=== PATIENT | female | born 1990 | race Caucasian/White ===

== ENCOUNTER 2018-03-12 00:26 | Inpatient (IN) | payer OTHER ==
[2018-03-12] MEDS ORDERED: ePHEDrine 50 MG/ML SDV IVPUSH PRN (19:38)
[2018-03-12] MEDS ORDERED: Ondansetron 4 MG/2 ML SDV IVPUSH PRN ×2 (19:38→20:31)
[2018-03-12] MEDS ORDERED: fentaNYL 100 MCG/2 ML SDV EPIDUR PRN (19:38)
[2018-03-12] MEDS ORDERED: fentaNYL/Bupivacaine-NS 2 MCG/ML-0.125%/PF 100 ML Bag EP SCH (19:45)
[2018-03-12] MEDS ORDERED: Phenylephrine 1 MG in Sodium Chloride 0.9% 10 ML IV SCH (19:45)
[2018-03-12] MEDS ORDERED: Misoprostol 25 MCG (1/4 of 100 MCG) Tab ONE (19:57)
[2018-03-12] MEDS: Misoprostol 25 MCG (1/4 of 100 MCG) Tab VAG PRN (20:11)
[2018-03-12] MEDS ORDERED: Nalbuphine 20 MG/1 ML Amp IVPUSH PRN (20:31)
[2018-03-12] MEDS ORDERED: Misoprostol 100 MCG Tab VAG PRN (20:31)
[2018-03-12] MEDS ORDERED: Sodium Chloride 0.9% 10 ML Syringe FLUSH PRN (20:31)
[2018-03-12] MEDS ORDERED: hydrOXYzine HCl 25 MG Tab PO PRN (20:36)
[2018-03-12] MEDS ORDERED: Oxytocin/Lactated Ringers 10 UNIT/1,000 ML BAG IV SCH (20:45)
--- NOTE | 2018-03-12 20:53 | PCM.LDHP ---
L&D History of Present Illness - General Date of Service: 03/12/18 Admit Problem/Dx: Patient Status Order with Admit Dx/Problem 03/12/18 20:31 Patient Status [ADT] Routine Admission Diagnosis/Problem Admission Diagnosis/Problem 39 weeks gestation of Source of Information: Patient History Limitations: Reports: No Limitations - History of Present Illness Introduction:: Evette Lu is a 27 year old at 39 weeks 5 days (PASCALE 03/14/2018) by LMP consistent with 6 week ultrasound who presents for elective induction of labor. Patient reports that she started to have some more unusual feelings and pressure in her abdomen and pelvis this afternoon. She didn't time when she was having some of these unusual feelings but states that they did get worse when she was standing. She reports a last night she started to have more mucous vaginal discharge but denies any vaginal bleeding. She reports good movement. She reports that she has been using the hydroxyzine at night to help with the itching that she had talked about at her last appointment. She reports that she developed a rash on her arms and abdomen and then now she is seeing a more on her arms behind her knees and on her legs and on buttocks. The hydroxyzine was helping with her itching and would like to continue during labor. Timing/Duration: Reports: gradual onset Location, : Reports: Pelvic Quality: Reports: Pressure Severity: Mild Improves with: Reports: None Worsens with: Reports: None Associated Symptoms: Denies: vaginal bleeding, vaginal discharge, vaginal fluid Present Illness Comments:: Evelia Lu is a 27-year-old at 39 weeks 5 days (PASCALE 03/14/2018) by LMP consistent with 6 week ultrasound who presents for elective induction of labor. She has had routine care with myself, Dr. Cosby, since 6 weeks' gestational age. Review of her labs shows A- blood type with negative antibody screen. Her hematocrit was 41.3 with hemoglobin of 13.8 and platelets of 283. She was rubella immune. Her RPR, hepatitis B surface antigen and HIV were negative. Her urine culture showed mixed daisy and was suggestive of contamination. Her gonorrhea and Chlamydia test were both negative. Her anatomy ultrasound was overall normal without any abnormalities. She had a posterior placenta on the ultrasound. Her 1 hour glucose tolerance test was elevated at 135. Her 3 hour glucose tolerance test had values of fasting of 78 , 1 hour value of 155, 2 hour value of 115 and 3 hour value of 99. Her repeat hematocrit was 35.2 with hemoglobin of 11.7 and platelets of 253 on 11/30/2017. She was given a dose of RhoGAM at 20 weeks gestational age on 12/21/2017. Her GBS test was positive on 02/19/2018. Her has been complicated by: * Rh- status requiring RhoGAM during , given first dose at 28 weeks gestational age. * GBS positive and will be treated in * Excessive weight gain of more than 100 pounds during * PUPPS at the end of treated with hydroxyzine * Personal history of spondylolisthesis - Related Data Allergies/Adverse Reactions: Allergies Allergy/AdvReac Type Severity Reaction Status Date / Time No Known Allergies Allergy Verified 02/16/14 15:22 Past Medical History [employer] History: Reports: : 1 Para: 0 Musculoskeletal History: Reports: Other (See Below) Other Musculoskeletal History: Spondylolisthesis Psychiatric History: Reports: Anxiety (Not requiring medications) - Past Surgical History HEENT Surgical History: Reports: Other (See Below) (Castaner tooth extraction) Social & Family History - Tobacco Use Smoking Status *Q: Never Smoker Tobacco Use Within Last Twelve Months: No - Tobacco Core Measures Tobacco Use/Smoking Within Last 30 Days: No Smokeless Tobacco Use in Last 30 Days: No - Alcohol Use Alcohol Use History: No - Recreational Drug Use Recreational Drug Use: No Drug Use in Last 12 Months: No - Living Situation & Occupation Living situation: Reports: with Significant Other Occupation: Employed H&P Review of Systems - Review of Systems: Review Of Systems: See Below General: Denies: Fever, Chills, Malaise, Weakness HEENT: Reports: Sinus Congestion. Denies: Rhinitis, Post Nasal Drip, Sore Throat, Visual Changes Pulmonary: Denies: Shortness of Breath, Wheezing, Cough Cardiovascular: Denies: Chest Pain, Palpitations, Dyspnea on Exertion Gastrointestinal: Reports: Diarrhea. Denies: Abdominal Pain, Constipation, Nausea, Vomiting Genitourinary: Denies: Dysuria, Frequency, Burning, Pain, Urgency Musculoskeletal: Reports: Back Pain (and hip pain) Skin: Reports: Rash (arms, abdomen and legs for last week or 2 of ). Denies: Lesions Psychiatric: Reports: Anxiety. Denies: Depression L&D Exam - Exam Exam: See Below - OB Specific Contraction Duration (sec): 30-75 Contraction Frequency (min): 2-6 Contraction Intensity: Mild Movement: Active Heart Tones: Present Heart Tones per Min: 145 (+15 x 15 accelerations, no decelerations) Heart Rate (FHR) Variability: Moderate (6-25 bmp) Presentation: Vertex Estimated Weight: 8-8.5 pounds by Michele's - Barr Score Barr Score Cervix Position: Posterior Barr Score Consistency: Medium Barr Score Effacement: 51-70% (70%) Barr Score Dilation: 1-2 cm (1.5 cm) Barr Score 's Station: -3 (-4) Barr Score Total: 4 - Exam General: Alert, Oriented HEENT: Conjunctiva Clear, EOMI Neck: Supple, Trachea Midline Lungs: Clear to Auscultation, Normal Respiratory Effort Cardiovascular: Regular Rate, Regular Rhythm GI/Abdominal Exam: Soft, Non-Tender, No Distention, Other (Gravid). No: Guarding, Rigid, Rebound Genitourinary: Normal external exam Back Exam: Normal Inspection, Full Range of Motion Skin: Warm, Dry, Intact, Rash (Over portions of the abdomen, bilateral arms and wrists, and bilateral lower legs) Psychiatric: Alert, Normal Affect, Normal Mood - Problem List (1) 39 weeks gestation of SNOMED Code(s): 75942376 ICD Code: Z3A.39 - 39 WEEKS GESTATION OF Status: Acute Current Visit: Yes (2) GBS (group B Streptococcus carrier), +RV culture, currently SNOMED Code(s): 0325828754798, [id number], 2107716302880 ICD Code: O99.820 - STREPTOCOCCUS B CARRIER STATE COMPLICATING Status: Acute Current Visit: Yes (3) Rh negative status during SNOMED Code(s): 178118591 ICD Code: O26.899 - OTH RELATED CONDITIONS, UNSPECIFIED TRIMESTER; Z67.91 - UNSPECIFIED BLOOD TYPE, RH NEGATIVE Status: Acute Current Visit: Yes (4) Anxiety SNOMED Code(s): 36831625 ICD Code: F41.9 - ANXIETY DISORDER, UNSPECIFIED Status: Acute Current Visit: Yes (5) Spondylolisthesis SNOMED Code(s): 472208573 ICD Code: M43.10 - SPONDYLOLISTHESIS, SITE UNSPECIFIED Status: Acute Current Visit: Yes Problem List Initiated/Reviewed/Updated: Yes Orders Last 24hrs: Active Orders 24 hr Category Date Time Status Patient Status [ADT] Routine ADT 03/12/18 20:31 Ordered Activity as Tolerated [RC] PFP Care 03/12/18 20:31 Ordered Communication Order [RC] ASDIRECTED Care 03/12/18 20:31 Ordered Communication Order [RC] ASDIRECTED Care 03/12/18 20:31 Ordered Communication Order [RC] ASDIRECTED Care 03/12/18 20:31 Ordered Communication Order [RC] ASDIRECTED Care 03/12/18 20:31 Ordered Heart Tones [RC] ASDIRECTED Care 03/12/18 20:31 Ordered Monitoring [RC] INTERMITTENT Care 03/12/18 20:31 Ordered Non Stress Test [RC] PER UNIT ROUTINE Care 03/12/18 20:31 Ordered Notify Provider Vital Signs [RC] PRN Care 03/12/18 20:32 Ordered Notify Provider [RC] ASDIRECTED Care 03/12/18 19:38 Active Notify Provider [RC] ASDIRECTED Care 03/12/18 20:31 Ordered Notify Provider [RC] ASDIRECTED Care 03/12/18 20:34 Ordered Notify Provider [RC] PFP Care 03/12/18 20:31 Ordered Notify Provider [RC] PRN Care 03/12/18 20:31 Ordered Oxygen Therapy [RC] ASDIRECTED Care 03/12/18 19:37 Active Peripheral IV Care [RC] . DIRECTED Care 03/12/18 20:31 Ordered Pulse Oximetry [RC] ASDIRECTED Care 03/12/18 19:37 Active Pump Management, Intrathecal [RC] ASDIRECTED Care 03/12/18 20:32 Ordered Up ad April [RC] ASDIRECTED Care 03/12/18 20:34 Ordered Urinary Catheter Assessment [RC] ASDIRECTED Care 03/12/18 20:31 Ordered Vaginal Exam [RC] ASDIRECTED Care 03/12/18 20:31 Ordered Vital Signs [RC] PER UNIT ROUTINE Care 03/12/18 20:31 Ordered Regular Diet [DIET] Diet 03/12/18 Dinner Ordered CBC W/O DIFF,HEMOGRAM [HEME] Routine Lab 03/12/18 20:31 Ordered RAPID PLASMA REAGIN,RPR [CHEM] Routine Lab 03/12/18 20:36 Ordered Ampicillin 1 gm Med 03/13/18 08:00 Ordered Sodium Chloride 0.9% [Normal Saline] 100 ml IV Q4H Ampicillin 2 gm Med 03/13/18 04:00 Ordered Sodium Chloride 0.9% [Normal Saline] 100 ml IV ONETIME Lactated Ringers [Ringers, Lactated] 1,000 ml Med 03/12/18 20:45 Ordered IV ASDIRECTED Lactated Ringers [Ringers, Lactated] 1,000 ml Med 03/12/18 20:45 Ordered IV ASDIRECTED Nalbuphine [Nubain] Med 03/12/18 20:31 Ordered 10 mg IVPUSH Q2H PRN Ondansetron [Zofran] Med 03/12/18 19:38 Active 4 mg IVPUSH ONETIME PRN Ondansetron [Zofran] Med 03/12/18 20:31 Ordered 4 mg IVPUSH Q4H PRN Oxytocin/Lactated Ringers [Pitocin in LR 10 Units/1,000 Med 03/12/18 20:45 Ordered ML] 10 unit in 1,000 ml IV .CONTINUOUS Phenylephrine [Ivan-Synephrine] 1 mg Med 03/12/18 19:45 Active Sodium Chloride 0.9% [Normal Saline] 10 ml IV TITRATE Sodium Chloride 0.9% [Saline Flush] Med 03/12/18 20:31 Ordered 10 ml FLUSH ASDIRECTED PRN ePHEDrine [ePHEDrine sulfate] Med 03/12/18 19:38 Active 5 mg IVPUSH ASDIRECTED PRN fentaNYL [Sublimaze] Med 03/12/18 19:38 Active 100 mcg EPIDUR Q3H PRN fentaNYL/Bupivacaine/NS/PF [rqkazROW-Cczbt-NL 2 MCG/ML- Med 03/12/18 19:45 Active 0.125%] 100 ml EP ASDIRECTED hydrOXYzine HCl [Atarax] Med 03/12/18 20:36 Ordered 25 mg PO Q6H PRN miSOPROStol [Cytotec] Med 03/12/18 20:31 Ordered 25 mcg VAG Q4H PRN Electronic Heart Tones Ext w TOCO [WOMSER] Oth 03/12/18 20:31 Ordered Routine Electronic Heart Tones Internal [WOMSER] Per Unit Oth 03/12/18 20:31 Ordered Routine Peripheral IV Insertion Adult [OM.PC] Routine Oth 03/12/18 20:31 Ordered Peripheral IV Insertion Adult [OM.PC] Routine Ot 03/12/18 20:31 Ordered Resuscitation Status Routine Resus Stat 03/12/18 20:31 Ordered Medication Orders Ephedrine Sulfate (Ephedrine Sulfate) 5 mg IVPUSH ASDIRECTED PRN PRN Reason: Hypotension Fentanyl (Sublimaze) 100 mcg EPIDUR Q3H PRN PRN Reason: Pain Fentanyl/Bupivacaine HCl (Gpxjpgjo-Rfkmo-Ne 2 Mcg/Ml-0.125%) 100 ml EP ASDIRECTED JEAN Hydroxyzine HCl (Atarax) 25 mg PO Q6H PRN PRN Reason: Itching Phenylephrine HCl 1 mg/ Sodium (Chloride) 10.1 mls @ 1 mls/sec IV TITRATE JEAN; Protocol Ampicillin Sodium 2 gm/ Sodium (Chloride) 100 mls @ 200 mls/hr IV ONETIME ONE Stop: 03/13/18 04:29 Ampicillin Sodium 1 gm/ Sodium (Chloride) 100 mls @ 200 mls/hr IV Q4H JEAN Lactated Ringer's (Ringers, Lactated) 1,000 mls @ 100 mls/hr IV ASDIRECTED JEAN Lactated Ringer's (Ringers, Lactated) 1,000 mls @ 40 mls/hr IV ASDIRECTED JEAN Oxytocin/Lactated Ringer's (Pitocin In Lr 10 Units/1,000 Ml) 10 unit in 1,000 mls @ 100 mls/hr IV .CONTINUOUS [facility] Misoprostol (Cytotec) 25 mcg VAG Q4H PRN PRN Reason: cervical ripening Nalbuphine HCl (Nubain) 10 mg IVPUSH Q2H PRN PRN Reason: Pain (moderate 4-6) Ondansetron HCl (Zofran) 4 mg IVPUSH ONETIME PRN PRN Reason: Nausea/Vomiting Ondansetron HCl (Zofran) 4 mg IVPUSH Q4H PRN PRN Reason: Nausea/Vomiting Sodium Chloride (Saline Flush) 10 ml FLUSH ASDIRECTED PRN PRN Reason: Keep Vein Open Assessment/Plan Comment:: Refer to observation for elective induction of labor Start induction of labor with Cytotec 25 mcg vaginally now and every 4 hours Intermittent monitoring while on Cytotec with monitoring for 30 minutes after placement of Cytotec and may ambulate as tolerated with category [address] IV and have Lactated Ringer's at 125 ml/hr if not tolerating regular diet May have regular diet while on Cytotec induction Activity as tolerated May have epidural as desired Plans to breast-feed after delivery Start on ampicillin 2 g at 0400 on 03/13/2018 and have 1 g every 4 hours after for GBS prophylaxis Patient may use hydroxyzine 25 mg every 6 hours as needed for itching Anticipate vaginal delivery unless otherwise indicated Ender Cosby M.D. Now 3 PM 03/12/2018
[2018-03-13] MEDS ORDERED: Misoprostol 25 MCG (1/4 of 100 MCG) Tab ONE (00:17)
[2018-03-13] MEDS: Misoprostol 25 MCG (1/4 of 100 MCG) Tab VAG PRN ×2 (00:28→08:32)
[2018-03-13] MEDS ORDERED: Hydrocortisone 1% Crm 30 GM Tube TOP PRN (00:52)
[2018-03-13] MEDS ORDERED: Hydrocortisone 1% Crm 30 GM Tube TOP ONE (01:26)
[2018-03-13] MEDS: Lactated Ringers 1,000 ML IV SCH ×4 (01:55→19:12)
[2018-03-13] MEDS ORDERED: Ampicillin 2 GM in Sodium Chloride 0.9% 100 ML IV ONE ×2 (04:00→11:30)
[2018-03-13] MEDS ORDERED: Nalbuphine 20 MG/ML 1 ML Syringe IVPUSH PRN (07:15)
[2018-03-13] MEDS ORDERED: Ampicillin 1 GM in Sodium Chloride 0.9% 100 ML IV SCH (08:00)
--- NOTE | 2018-03-13 08:43 | PCM.PNLD ---
Labor Progress Note - VS & Meds Vital Signs: Last Vital Signs Temp 37.3 C 03/12/18 20:31 Pulse 78 03/12/18 20:31 Resp 15 03/12/18 20:31 BP 138/77 03/12/18 20:31 Pulse Ox 99 03/12/18 20:31 Active Medications: Current Medications Ephedrine Sulfate (Ephedrine Sulfate) 5 mg IVPUSH ASDIRECTED PRN PRN Reason: Hypotension Fentanyl (Sublimaze) 100 mcg EPIDUR Q3H PRN PRN Reason: Pain Fentanyl/Bupivacaine HCl (Tgwluejb-Kggsv-Sz 2 Mcg/Ml-0.125%) 100 ml EP ASDIRECTED JEAN Hydroxyzine HCl (Atarax) 25 mg PO Q6H PRN PRN Reason: Itching Last Admin: 03/12/18 23:00 Dose: 25 mg Phenylephrine HCl 1 mg/ Sodium (Chloride) 10.1 mls @ 1 mls/sec IV TITRATE JEAN; Protocol Ampicillin Sodium 1 gm/ Sodium (Chloride) 100 mls @ 200 mls/hr IV Q4H JEAN Lactated Ringer's (Ringers, Lactated) 1,000 mls @ 100 mls/hr IV ASDIRECTED JEAN Last Admin: 03/13/18 01:55 Dose: 999 mls/hr Lactated Ringer's (Ringers, Lactated) 1,000 mls @ 40 mls/hr IV ASDIRECTED JEAN Oxytocin/Lactated Ringer's (Pitocin In Lr 10 Units/1,000 Ml) 10 unit in 1,000 mls @ 100 mls/hr IV .CONTINUOUS JEAN Nalbuphine HCl (Nubain) 10 mg IVPUSH Q2H PRN PRN Reason: Pain (moderate 4-6) Ondansetron HCl (Zofran) 4 mg IVPUSH ONETIME PRN PRN Reason: Nausea/Vomiting Ondansetron HCl (Zofran) 4 mg IVPUSH Q4H PRN PRN Reason: Nausea/Vomiting Sodium Chloride (Saline Flush) 10 ml FLUSH ASDIRECTED PRN PRN Reason: Keep Vein Open Discontinued Medications Hydrocortisone (Hydrocortisone 1% Crm) 30 gm TOP ASDIRECTED PRN PRN Reason: Itching Hydrocortisone (Hydrocortisone 1% Crm) 0 gm TOP ONETIME ONE Stop: 03/13/18 01:27 Last Admin: 03/13/18 01:51 Dose: 1 applic Ampicillin Sodium 2 gm/ Sodium (Chloride) 100 mls @ 200 mls/hr IV ONETIME ONE Stop: 03/13/18 04:29 Misoprostol (Cytotec) Confirm Administered Dose 25 mcg .ROUTE .STK-MED ONE Stop: 03/12/18 19:58 Last Admin: 03/13/18 01:15 Dose: Not Given Misoprostol (Cytotec) 25 mcg VAG Q4H PRN PRN Reason: cervical ripening Misoprostol (Cytotec) 25 mcg VAG Q4H PRN PRN Reason: cervical ripening Last Admin: 03/13/18 08:32 Dose: 25 mcg Misoprostol (Cytotec) Confirm Administered Dose 25 mcg .ROUTE .STK-MED ONE Stop: 03/13/18 00:18 Last Admin: 03/13/18 01:15 Dose: Not Given Nalbuphine HCl (Nubain) 10 mg IVPUSH Q2H PRN PRN Reason: Pain (moderate 4-6) - Uterine Contractions Contraction Frequency (min): 1-6 with couplets and triplets Contraction Duration (sec): 30-75 Contraction Intensity: Moderate Uterine Resting Tone: Soft - Monitoring Monitor Mode: Doppler/Auscultation Heart Rate (FHR) Baseline: 130 Heart Rate (FHR) Per Doppler: 130 Heart Rate (FHR) Variability: Moderate (6-25 bmp) Accelerations: Present, 15x15 Decelerations: None - Vaginal Exam Dilation (cm): 1.5 Effacement (Percent): 80 Station: -3 Cervical Position: Anterior Sterile Vaginal Exam Performed By: Ender Cosby Vaginal Exam Comment: Cervical exam was 1.5/80/-3/soft/anterior. Received verbal consent for placement of placement of Stone bulb for cervical dilation. 24 [place] Stnoe bulb was placed through the cervix and 50 mL of sterile water was instilled into the foldable balloon. The mother and baby tolerated procedure without difficulties. - Labor Progress (Free Text) Labor Progress: * Patient making good progress at this time. Cervix is softening up with use of Cytotec. * Additional dose of Cytotec 25 mcg placed at time of Stone bulb placement. * Patient diagnosed with preeclampsia overnight based on continued elevation of her blood pressures into the 140s/80s and urine protein to creatinine ratio of 0.534. We will continue to monitor her blood pressures closely to ensure that she does not develop severe features. * Plan to start ampicillin 2 g at 11 AM for GBS prophylaxis or if her water breaks spontaneously. * Anticipate vaginal delivery unless otherwise indicated Ender Cosby M.D. 8:51 AM 03/13/2018
[2018-03-13] MEDS ORDERED: hydrALAZINE 20 MG/ML SDV IVPUSH ONE (09:21)
[2018-03-13] MEDS ORDERED: hydrALAZINE 20 MG/ML SDV ONE (09:22)
--- NOTE | 2018-03-13 12:55 | PCM.PNLD ---
Labor Progress Note - VS & Meds Vital Signs: Last Vital Signs Temp 37.3 C 03/12/18 20:31 Pulse 78 03/12/18 20:31 Resp 15 03/12/18 20:31 BP 138/77 03/12/18 20:31 Pulse Ox 99 03/12/18 20:31 Active Medications: Current Medications Ephedrine Sulfate (Ephedrine Sulfate) 5 mg IVPUSH ASDIRECTED PRN PRN Reason: Hypotension Fentanyl (Sublimaze) 100 mcg EPIDUR Q3H PRN PRN Reason: Pain Fentanyl/Bupivacaine HCl (Daduptjz-Rmwtz-Bd 2 Mcg/Ml-0.125%) 100 ml EP ASDIRECTED JEAN Hydroxyzine HCl (Atarax) 25 mg PO Q6H PRN PRN Reason: Itching Last Admin: 03/12/18 23:00 Dose: 25 mg Phenylephrine HCl 1 mg/ Sodium (Chloride) 10.1 mls @ 1 mls/sec IV TITRATE JEAN; Protocol Lactated Ringer's (Ringers, Lactated) 1,000 mls @ 100 mls/hr IV ASDIRECTED JEAN Last Admin: 03/13/18 01:55 Dose: 999 mls/hr Lactated Ringer's (Ringers, Lactated) 1,000 mls @ 40 mls/hr IV ASDIRECTED JEAN Oxytocin/Lactated Ringer's (Pitocin In Lr 10 Units/1,000 Ml) 10 unit in 1,000 mls @ 100 mls/hr IV .CONTINUOUS JEAN Ampicillin Sodium 1 gm/ Sodium (Chloride) 100 mls @ 200 mls/hr IV Q4H JEAN Oxytocin 10 unit/ Lactated (Ringer's) 1,001 mls @ 12.01 mls/hr IV TITRATE JEAN; Protocol Nalbuphine HCl (Nubain) 10 mg IVPUSH Q2H PRN PRN Reason: Pain (moderate 4-6) Ondansetron HCl (Zofran) 4 mg IVPUSH ONETIME PRN PRN Reason: Nausea/Vomiting Ondansetron HCl (Zofran) 4 mg IVPUSH Q4H PRN PRN Reason: Nausea/Vomiting Sodium Chloride (Saline Flush) 10 ml FLUSH ASDIRECTED PRN PRN Reason: Keep Vein Open Discontinued Medications Hydralazine HCl (Apresoline) 10 mg IVPUSH ONETIME ONE Stop: 03/13/18 09:22 Last Admin: 03/13/18 09:26 Dose: 10 mg Hydralazine HCl (Apresoline) Confirm Administered Dose 20 mg .ROUTE .STK-MED ONE Stop: 03/13/18 09:23 Last Admin: 03/13/18 10:49 Dose: Not Given Hydrocortisone (Hydrocortisone 1% Crm) 30 gm TOP ASDIRECTED PRN PRN Reason: Itching Hydrocortisone (Hydrocortisone 1% Crm) 0 gm TOP ONETIME ONE Stop: 03/13/18 01:27 Last Admin: 03/13/18 01:51 Dose: 1 applic Ampicillin Sodium 2 gm/ Sodium (Chloride) 100 mls @ 200 mls/hr IV ONETIME ONE Stop: 03/13/18 04:29 Ampicillin Sodium 1 gm/ Sodium (Chloride) 100 mls @ 200 mls/hr IV Q4H JEAN Ampicillin Sodium 2 gm/ Sodium (Chloride) 100 mls @ 200 mls/hr IV ONETIME ONE Stop: 03/13/18 11:59 Last Admin: 03/13/18 11:37 Dose: 200 mls/hr Misoprostol (Cytotec) Confirm Administered Dose 25 mcg .ROUTE .STK-MED ONE Stop: 03/12/18 19:58 Last Admin: 03/13/18 01:15 Dose: Not Given Misoprostol (Cytotec) 25 mcg VAG Q4H PRN PRN Reason: cervical ripening Misoprostol (Cytotec) 25 mcg VAG Q4H PRN PRN Reason: cervical ripening Last Admin: 03/13/18 08:32 Dose: 25 mcg Misoprostol (Cytotec) Confirm Administered Dose 25 mcg .ROUTE .STK-MED ONE Stop: 03/13/18 00:18 Last Admin: 03/13/18 01:15 Dose: Not Given Nalbuphine HCl (Nubain) 10 mg IVPUSH Q2H PRN PRN Reason: Pain (moderate 4-6) - Uterine Contractions Contraction Frequency (min): 1-4 Contraction Duration (sec): 45-75 Contraction Intensity: Moderate to Strong Uterine Resting Tone: Soft - Monitoring Monitor Mode: Doppler/Auscultation Heart Rate (FHR) Baseline: 140 Heart Rate (FHR) Per Doppler: 140 Heart Rate (FHR) Variability: Moderate (6-25 bmp) Accelerations: Present, 15x15 Decelerations: None, Variable, Intermittent (<50% x 20 min) - Vaginal Exam Dilation (cm): 5 Effacement (Percent): 80 Station: -2 Cervical Position: Anterior Sterile Vaginal Exam Performed By: Ender Cosby Vaginal Exam Comment: Stone bulb was removed intact and cervical exam was 5/80/- 2/soft/anterior. - Labor Progress (Free Text) Labor Progress: Good labor progress at this time. Cervical exam was 5/80/-2/anterior/soft but likely due to mechanical dilation by Stone bulb. Will start with pitocin for augmentation of labor at this time. Continue Ampicillin for GBS prophylaxis Will plan for artificial rupture of membranes after patient has made cervical change and is past 4 hours after first dose of Ampicillin Ender Cosby MD 12:5 PM 03/13/2018
[2018-03-13] MEDS ORDERED: Oxytocin/Lactated Ringers 10 UNIT/1,000 ML BAG IV SCH (13:00)
[2018-03-13] MEDS: Ampicillin 1 GM in Sodium Chloride 0.9% 100 ML IV SCH ×3 (15:29→23:17)
--- NOTE | 2018-03-13 17:14 | PCM.PNLD ---
Labor Progress Note - VS & Meds Vital Signs: Last Vital Signs Temp 37.3 C 03/12/18 20:31 Pulse 78 03/12/18 20:31 Resp 15 03/12/18 20:31 BP 138/77 03/12/18 20:31 Pulse Ox 99 03/12/18 20:31 Active Medications: Current Medications Ephedrine Sulfate (Ephedrine Sulfate) 5 mg IVPUSH ASDIRECTED PRN PRN Reason: Hypotension Fentanyl (Sublimaze) 100 mcg EPIDUR Q3H PRN PRN Reason: Pain Fentanyl/Bupivacaine HCl (Qfmvdxrp-Adems-Vz 2 Mcg/Ml-0.125%) 100 ml EP ASDIRECTED JEAN Hydroxyzine HCl (Atarax) 25 mg PO Q6H PRN PRN Reason: Itching Last Admin: 03/12/18 23:00 Dose: 25 mg Phenylephrine HCl 1 mg/ Sodium (Chloride) 10.1 mls @ 1 mls/sec IV TITRATE JEAN; Protocol Lactated Ringer's (Ringers, Lactated) 1,000 mls @ 100 mls/hr IV ASDIRECTED JEAN Last Admin: 03/13/18 01:55 Dose: 999 mls/hr Lactated Ringer's (Ringers, Lactated) 1,000 mls @ 40 mls/hr IV ASDIRECTED JEAN Last Admin: 03/13/18 13:05 Dose: 40 mls/hr Oxytocin/Lactated Ringer's (Pitocin In Lr 10 Units/1,000 Ml) 10 unit in 1,000 mls @ 100 mls/hr IV .CONTINUOUS [facility] Ampicillin Sodium 1 gm/ Sodium (Chloride) 100 mls @ 200 mls/hr IV Q4H JEAN Last Admin: 03/13/18 15:29 Dose: 200 mls/hr Oxytocin/Lactated Ringer's (Pitocin In Lr 10 Units/1,000 Ml) 10 unit in 1,000 mls @ 12 mls/hr IV TITRATE JEAN; Protocol Last Titration: 03/13/18 14:36 Dose: 8 munits/min, 48 mls/hr Nalbuphine HCl (Nubain) 10 mg IVPUSH Q2H PRN PRN Reason: Pain (moderate 4-6) Ondansetron HCl (Zofran) 4 mg IVPUSH ONETIME PRN PRN Reason: Nausea/Vomiting Ondansetron HCl (Zofran) 4 mg IVPUSH Q4H PRN PRN Reason: Nausea/Vomiting Sodium Chloride (Saline Flush) 10 ml FLUSH ASDIRECTED PRN PRN Reason: Keep Vein Open Discontinued Medications Hydralazine HCl (Apresoline) 10 mg IVPUSH ONETIME ONE Stop: 03/13/18 09:22 Last Admin: 03/13/18 09:26 Dose: 10 mg Hydralazine HCl (Apresoline) Confirm Administered Dose 20 mg .ROUTE .STK-MED ONE Stop: 03/13/18 09:23 Last Admin: 03/13/18 10:49 Dose: Not Given Hydrocortisone (Hydrocortisone 1% Crm) 30 gm TOP ASDIRECTED PRN PRN Reason: Itching Hydrocortisone (Hydrocortisone 1% Crm) 0 gm TOP ONETIME ONE Stop: 03/13/18 01:27 Last Admin: 03/13/18 01:51 Dose: 1 applic Ampicillin Sodium 2 gm/ Sodium (Chloride) 100 mls @ 200 mls/hr IV ONETIME ONE Stop: 03/13/18 04:29 Last Admin: 03/13/18 14:10 Dose: Not Given Ampicillin Sodium 1 gm/ Sodium (Chloride) 100 mls @ 200 mls/hr IV Q4H JEAN Last Admin: 03/13/18 14:09 Dose: Not Given Ampicillin Sodium 2 gm/ Sodium (Chloride) 100 mls @ 200 mls/hr IV ONETIME ONE Stop: 03/13/18 11:59 Last Admin: 03/13/18 11:37 Dose: 200 mls/hr Misoprostol (Cytotec) Confirm Administered Dose 25 mcg .ROUTE .STK-MED ONE Stop: 03/12/18 19:58 Last Admin: 03/13/18 01:15 Dose: Not Given Misoprostol (Cytotec) 25 mcg VAG Q4H PRN PRN Reason: cervical ripening Misoprostol (Cytotec) 25 mcg VAG Q4H PRN PRN Reason: cervical ripening Last Admin: 03/13/18 08:32 Dose: 25 mcg Misoprostol (Cytotec) Confirm Administered Dose 25 mcg .ROUTE .STK-MED ONE Stop: 03/13/18 00:18 Last Admin: 03/13/18 01:15 Dose: Not Given Nalbuphine HCl (Nubain) 10 mg IVPUSH Q2H PRN PRN Reason: Pain (moderate 4-6) - Uterine Contractions Contraction Frequency (min): 1-4 Contraction Duration (sec): 60-75 Contraction Intensity: Moderate to Strong Uterine Resting Tone: Soft - Monitoring Monitor Mode: Doppler/Auscultation Heart Rate (FHR) Baseline: 135 Heart Rate (FHR) Per Doppler: 135 Heart Rate (FHR) Variability: Moderate (6-25 bmp) Accelerations: Present, 15x15 Decelerations: None, Variable, Intermittent (<50% x 20 min) Strip Review: Category II - Vaginal Exam Dilation (cm): 7 Effacement (Percent): 90 Station: -2 Cervical Position: Anterior Sterile Vaginal Exam Performed By: Ender Cosby Vaginal Exam Comment: Patient with spontaneous rupture of membranes prior to exam. Meconium fluid noted at the time of rupture. Patient with forebag noted on exam. Artificial rupture of membranes of forebag with [place] performed. Thick meconium fluid noted. - Labor Progress (Free Text) Labor Progress: Patient continuing to progress with slow dilation of cervix. Continue pitocin for augmentation of labor Thick meconium fluid noted with artificial rupture of membranes of fore bag. Ramp Flight Attendant informed. Continue ampicillin for GBS prophylaxis Blood pressures have been normal to mild range. Will continue to monitor Anticipate vaginal delivery unless otherwise indicated. Ender Cosby MD 5:17 PM 03/13/2018
--- NOTE | 2018-03-13 18:02 | PCM.PREANE ---
Preanesthetic Assessment - Anesthesia/Transfusion/Family Hx Anesthesia History: Prior Anesthesia Without Reaction Family History of Anesthesia Reaction: No Transfusion History: No Prior Transfusion(s) - Review of Systems General: Fatigue Pulmonary: No Symptoms Cardiovascular: No Symptoms Gastrointestinal: Abdominal Pain (LABOR CONTRACTIONS) Neurological: No Symptoms Other: Reports: None - Physical Assessment Pulse: 78 O2 Sat by Pulse Oximetry: 99 Respiratory Rate: 15 Blood Pressure: 138/77 Temperature: 37.3 C Vital Signs: Last Vital Signs Temp 37.3 C 03/12/18 20:31 Pulse 78 03/12/18 20:31 Resp 15 03/12/18 20:31 BP 138/77 03/12/18 20:31 Pulse Ox 99 03/12/18 20:31 Height: 1.68 m Weight: 119.295 kg ASA Class: 2 Mental Status: Alert & Oriented x3 Airway Class: Mallampati = 1 Dentition: Reports: Normal Dentition Thyro-Mental Finger Breadths: 3 Mouth Opening Finger Breadths: 3 ROM/Head Extension: Full Lungs: Clear to Auscultation, Normal Respiratory Effort Cardiovascular: Regular Rate, Regular Rhythm - Lab Values: Laboratory Last Values WBC 12.03 K/mm3 (3.98-10.04) H 03/12/18 20:49 RBC 4.08 M/mm3 (3.98-5.22) 03/12/18 20:49 Hgb 12.0 gm/L (11.2-15.7) 03/12/18 20:49 Hct 35.5 % (34.1-44.9) 03/12/18 20:49 MCV 87.0 fl (79.4-94.8) 03/12/18 20:49 MCH 29.4 pg (25.6-32.2) 03/12/18 20:49 MCHC 33.8 g/dl (32.2-35.5) 03/12/18 20:49 RDW Std Deviation 43.3 fL (36.4-46.3) 03/12/18 20:49 Plt Count 223 K/mm3 (182-369) 03/12/18 20:49 MPV 9.8 fl (9.4-12.3) 03/12/18 20:49 Sodium 137 mEq/L (136-145) 03/12/18 20:49 Potassium 3.9 mEq/L (3.5-5.1) 03/12/18 20:49 Chloride 105 mEq/L (98-107) 03/12/18 20:49 Carbon Dioxide 20 mEq/L (21-32) L 03/12/18 20:49 Anion Gap 15.9 (5-15) H 03/12/18 20:49 BUN 11 mg/dL (7-18) 03/12/18 20:49 Creatinine 0.7 mg/dL (0.55-1.02) 03/12/18 20:49 Est Cr Clr Drug Dosing 111.01 mL/min 03/12/18 20:49 Estimated GFR (MDRD) > 60 mL/min (>60) 03/12/18 20:49 BUN/Creatinine Ratio 15.7 (14-18) 03/12/18 20:49 Glucose 109 mg/dL (74-106) H 03/12/18 20:49 Calcium 8.9 mg/dL (8.5-10.1) 03/12/18 20:49 Total Bilirubin 0.1 mg/dL (0.2-1.0) L 03/12/18 20:49 AST 20 U/L (15-37) 03/12/18 20:49 ALT 22 U/L (14-59) 03/12/18 20:49 Alkaline Phosphatase 145 U/L (46-116) H 03/12/18 20:49 Total Protein 6.5 g/dl (6.4-8.2) 03/12/18 20:49 Albumin 2.6 g/dl (3.4-5.0) L 03/12/18 20:49 Globulin 3.9 gm/dL 03/12/18 20:49 Albumin/Globulin Ratio 0.7 (1-2) L 03/12/18 20:49 Ur Random Creatinine 35.2 mg/dL (30.0-125.0) 03/13/18 02:50 U Random Total Protein 18.8 mg/dL (0.0-11.8) H 03/13/18 02:50 Protein/Creatinin Ratio 534.1 mg/g (0-149) H 03/13/18 02:50 RPR Non-reactive (NONREACTIVE) 03/12/18 20:49 - Allergies Allergies/Adverse Reactions: Allergies Allergy/AdvReac Type Severity Reaction Status Date / Time No Known Allergies Allergy Verified 02/16/14 15:22 - Anesthesia Plan Pre-Op Medication Ordered: None - Acknowledgements Anesthesia Type Planned: Epidural Pt an Appropriate Candidate for the Planned Anesthesia: Yes Alternatives and Risks of Anesthesia Discussed w Pt/Guardian: Yes Pt/Guardian Understands and Agrees with Anesthesia Plan: Yes PreAnesthesia Questionnaire HEENT History: Reports: None Gastrointestinal History: Reports: GERD, Other (See Below) Other Gastrointestinal History: Some diarrhea intermittently over past 3 weeks. 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 Dermatologic History: Reports: Other (See Below) Other Dermatologic History: Preganancy rash; tiny, itchy bumps with reddenned skin on all parts of body - Past Surgical History HEENT Surgical History: Reports: Oral Surgery, Other (See Below) Other HEENT Surgeries/Procedures: [place] teeth pulled 2007 GI Surgical History: Reports: None Musculoskeletal Surgical History: Reports: None Dermatological Surgical History: Reports: None - SUBSTANCE USE Smoking Status *Q: Never Smoker Tobacco Use Within Last Twelve Months: No Second Hand Smoke Exposure: No Recreational Drug Use History: No - CURRENT (IN HOUSE) MEDS Current Meds: Current Medications Ephedrine Sulfate (Ephedrine Sulfate) 5 mg IVPUSH ASDIRECTED PRN PRN Reason: Hypotension Fentanyl (Sublimaze) 100 mcg EPIDUR Q3H PRN PRN Reason: Pain Last Admin: 03/13/18 17:54 Dose: 100 mcg Fentanyl/Bupivacaine HCl (Yqqvaaeb-Vfwpy-Up 2 Mcg/Ml-0.125%) 100 ml EP ASDIRECTED JEAN Last Admin: 03/13/18 17:55 Dose: 100 ml Hydroxyzine HCl (Atarax) 25 mg PO Q6H PRN PRN Reason: Itching Last Admin: 03/12/18 23:00 Dose: 25 mg Phenylephrine HCl 1 mg/ Sodium (Chloride) 10.1 mls @ 1 mls/sec IV TITRATE JEAN; Protocol Lactated Ringer's (Ringers, Lactated) 1,000 mls @ 100 mls/hr IV ASDIRECTED JEAN Last Admin: 03/13/18 01:55 Dose: 999 mls/hr Lactated Ringer's (Ringers, Lactated) 1,000 mls @ 40 mls/hr IV ASDIRECTED JEAN Last Admin: 03/13/18 13:05 Dose: 40 mls/hr Oxytocin/Lactated Ringer's (Pitocin In Lr 10 Units/1,000 Ml) 10 unit in 1,000 mls @ 100 mls/hr IV .CONTINUOUS JEAN Ampicillin Sodium 1 gm/ Sodium (Chloride) 100 mls @ 200 mls/hr IV Q4H JEAN Last Admin: 03/13/18 15:29 Dose: 200 mls/hr Oxytocin/Lactated Ringer's (Pitocin In Lr 10 Units/1,000 Ml) 10 unit in 1,000 mls @ 12 mls/hr IV TITRATE JEAN; Protocol Last Titration: 03/13/18 17:33 Dose: 0 munits/min, 0 mls/hr Nalbuphine HCl (Nubain) 10 mg IVPUSH Q2H PRN PRN Reason: Pain (moderate 4-6) Ondansetron HCl (Zofran) 4 mg IVPUSH ONETIME PRN PRN Reason: Nausea/Vomiting Ondansetron HCl (Zofran) 4 mg IVPUSH Q4H PRN PRN Reason: Nausea/Vomiting Sodium Chloride (Saline Flush) 10 ml FLUSH ASDIRECTED PRN PRN Reason: Keep Vein Open Discontinued Medications Hydralazine HCl (Apresoline) 10 mg IVPUSH ONETIME ONE Stop: 03/13/18 09:22 Last Admin: 03/13/18 09:26 Dose: 10 mg Hydralazine HCl (Apresoline) Confirm Administered Dose 20 mg .ROUTE .STK-MED ONE Stop: 03/13/18 09:23 Last Admin: 03/13/18 10:49 Dose: Not Given Hydrocortisone (Hydrocortisone 1% Crm) 30 gm TOP ASDIRECTED PRN PRN Reason: Itching Hydrocortisone (Hydrocortisone 1% Crm) 0 gm TOP ONETIME ONE Stop: 03/13/18 01:27 Last Admin: 03/13/18 01:51 Dose: 1 applic Ampicillin Sodium 2 gm/ Sodium (Chloride) 100 mls @ 200 mls/hr IV ONETIME ONE Stop: 03/13/18 04:29 Last Admin: 03/13/18 14:10 Dose: Not Given Ampicillin Sodium 1 gm/ Sodium (Chloride) 100 mls @ 200 mls/hr IV Q4H JEAN Last Admin: 03/13/18 14:09 Dose: Not Given Ampicillin Sodium 2 gm/ Sodium (Chloride) 100 mls @ 200 mls/hr IV ONETIME ONE Stop: 03/13/18 11:59 Last Admin: 03/13/18 11:37 Dose: 200 mls/hr Misoprostol (Cytotec) Confirm Administered Dose 25 mcg .ROUTE .STK-MED ONE Stop: 03/12/18 19:58 Last Admin: 03/13/18 01:15 Dose: Not Given Misoprostol (Cytotec) 25 mcg VAG Q4H PRN PRN Reason: cervical ripening Misoprostol (Cytotec) 25 mcg VAG Q4H PRN PRN Reason: cervical ripening Last Admin: 03/13/18 08:32 Dose: 25 mcg Misoprostol (Cytotec) Confirm Administered Dose 25 mcg .ROUTE .STK-MED ONE Stop: 03/13/18 00:18 Last Admin: 03/13/18 01:15 Dose: Not Given Nalbuphine HCl (Nubain) 10 mg IVPUSH Q2H PRN PRN Reason: Pain (moderate 4-6)
--- NOTE | 2018-03-13 20:56 | PCM.SN ---
- Free Text/Narrative Note: 2029 called to room 31 to assess epidural disconnected at hub, catheter cut 4 inches up line and connected with new set up 10ml dose 25% bupivacaine bolus provided with rate on pump increased from 10ml/hr to 15ml/hr VSS out of room at 2050
[2018-03-13] MEDS ORDERED: Bupivacaine 0.25% 10 ML SDV ONE (22:00)
[2018-03-14] MEDS ORDERED: Misoprostol 200 MCG Tab ONE (00:32)
[2018-03-14] MEDS ORDERED: Lidocaine 1% 50 ML MDV ONE (00:36)
[2018-03-14] MEDS ORDERED: Misoprostol 100 MCG Tab PO ONE (00:41)
[2018-03-14] MEDS ORDERED: Lidocaine 1% 10 ML MDV INJECT ONE (00:43)
--- NOTE | 2018-03-14 01:30 | PCM.DEL ---
L & D Note - General Info Date of Service: 03/14/18 Mother's Due Date: 03/14/18 - Delivery Note Labor: Augmented by Oxytocin Cervical Ripening Method: Balloon Device, Misoprostil, Oxytocin Delivery Outcome: Livebirth Delivery Method: Spontaneous Vaginal Delivery-Single Presentation: Left Occiput Anterior (YULIANA) Nuchal Cord: Present (1), Reduced (Prior to delivery) Prep: Povidone-Iodine (Betadine Anesthesia Type: Epidural, Local Anesthetic: Lidocaine (Xylocaine) 1% Plain Amniotic Fluid Description: Meconium Stained (Thick meconium) Episiotomy Type: None Laceration: 2nd Degree, Perineal (Midline) Suture type: Vicryl Suture size: 3-0 Placenta: Intact, Spontaneous Cord: 3 Vessels Estimated Blood Loss: 600 Resuscitation Needed: Yes : Bulb Syringe, Stimulated, Warmed, [place] Used, Warmer Used Provider: Ender Cosby Score 1 min: 8 Score 5 min: 9 Second Stage Interventions: Reports: Pushing, Reverse Squat, Pushing Effectively , Pushing, Pulls Own Legs Back Delivery Comments (Free Text/Narrative):: Stage I: Evelia Lu was admitted for elective induction of labor. On admission her cervix was dilated to 1 cm. She was GBS positive. She was given Cytotec 25 mcg for initial induction of labor and received 2 doses overnight. During then initial night of her in induction she was having consistent blood pressures into the 140s/90s to 100s. Labs were drawn including urine protein/ creatinine ratio that came back elevated at 0.534. Given her elevated blood pressures and the urine protein/creatinine ratio she was diagnosed with preeclampsia without severe features. After the second dose she started having regular contractions every 1.5-2 minutes and was not given the third dose initially. In the morning of hospital day #2 she had a 24 Arabic Stone bulb placed for additional induction of labor. She was given third dose of Cytotec 25 mcg at time of placement of the Stone bulb. After having the Stone bulb placed she had a severe sustained blood pressure that was into the 160s to 170s/ 90s to 100s. She was given 1 dose of hydralazine 10 mg IV and this resolved her blood pressure. The Stone bulb came out and she was transitioned to Pitocin for continued augmentation of labor. She had spontaneous rupture membranes with meconium-stained fluid. On exam she had a fore bag that was noted and artificial rupture of membranes of this for bag was completed with return of thick meconium fluid. She was given an epidural for anesthesia. She progressed to complete and pushing. Stage II: On 03/14/2018 she had a normal vaginal delivery of a live female at 0026. Apgars of 8 & 9. Weight of 3840 g (8 lbs 7 oz). Length of 19 inches. There was a single nuchal cord that was reduced prior to delivery. Infant was delivered in YULIANA position. The cord was doubly clamped and cut by father of the . Infant was taken to the warmer for resuscitation by the awaiting hospice educator, Dr. Webb. Stage III: She had a spontaneous delivery of an intact placenta in [place] presentation. Three vessel cord. She was given pitocin and fundal massage. She was given injection of 1% lidocaine for additional local anesthesia. She had a second-degree midline laceration that was repaired with 3-0 Vicryl. Mom and baby were stable to recovery. EBL of 600 mL. Ender Cosby MD 1:25 AM 03/14/2018 Induction Criteria - Barr Score Barr Score Dilation: 1-2 cm Barr Score Effacement: 60-70% Barr Score 's Station: -3 Barr Score Consistency: Medium Barr Score Cervix Position: Posterior Barr Score Total: 4 Barr Score Presenting Part: Reports: Cephalic - Induction Gestational Age >/= 39 wks: Yes Estimated Pelvis: Reports: Adequate Reassuring Monitoring Strip: Yes Absence of Tachy Systole: Yes - Augmentation Estimated Pelvis: Reports: Adequate Weight Estimated:: Reports: AGA Reassuring Monitoring Strip: Yes Absence of Tachy Systole: Yes - General Info Date of Service: 03/14/18 - Patient Data Vitals - Most Recent: Last Vital Signs Temp 37.3 C 03/13/18 18:02 Pulse 78 03/13/18 18:02 Resp 15 03/13/18 18:02 BP 138/77 03/13/18 18:02 Pulse Ox 99 03/13/18 18:02 Weight - Most Recent: 119.295 kg I&O - Last 24 Hours: Intake & Output 03/13/18 03/13/18 03/14/18 14:59 22:59 06:59 Intake Total 0 3300 100 Output Total 375 150 Balance 0 2925 -50 Lab Results Last 24 Hours: Laboratory Results - last 24 hr 03/12/18 03/12/18 03/13/18 Range/Units 20:49 20:49 02:50 Sodium 137 (136-145) mEq/L Potassium 3.9 (3.5-5.1) mEq/L Chloride 105 (98-107) mEq/L Carbon Dioxide 20 L (21-32) mEq/L Anion Gap 15.9 H (5-15) BUN 11 (7-18) mg/dL Creatinine 0.7 (0.55-1.02) mg/dL Est Cr Clr Drug Dosing 111.01 mL/min Estimated GFR (MDRD) > 60 (>60) mL/min BUN/Creatinine Ratio 15.7 (14-18) Glucose 109 H (74-106) mg/dL Calcium 8.9 (8.5-10.1) mg/dL Total Bilirubin 0.1 L (0.2-1.0) mg/dL AST 20 (15-37) U/L ALT 22 (14-59) U/L Alkaline Phosphatase 145 H (46-116) U/L Total Protein 6.5 (6.4-8.2) g/dl Albumin 2.6 L (3.4-5.0) g/dl Globulin 3.9 gm/dL Albumin/Globulin Ratio 0.7 L (1-2) Ur Random Creatinine 35.2 (30.0-125.0) mg/dL U Random Total Protein 18.8 H (0.0-11.8) mg/dL Protein/Creatinin Ratio 534.1 H (0-149) mg/g RPR Non-reactive (NONREACTIVE) Med Orders - Current: Current Medications Ephedrine Sulfate (Ephedrine Sulfate) 5 mg IVPUSH ASDIRECTED PRN PRN Reason: Hypotension Fentanyl (Sublimaze) 100 mcg EPIDUR Q3H PRN PRN Reason: Pain Last Admin: 03/13/18 17:54 Dose: 100 mcg Fentanyl/Bupivacaine HCl (Hogeenzy-Nwexy-Cu 2 Mcg/Ml-0.125%) 100 ml EP ASDIRECTED JEAN Last Admin: 03/13/18 17:55 Dose: 100 ml Hydroxyzine HCl (Atarax) 25 mg PO Q6H PRN PRN Reason: Itching Last Admin: 03/12/18 23:00 Dose: 25 mg Phenylephrine HCl 1 mg/ Sodium (Chloride) 10.1 mls @ 1 mls/sec IV TITRATE JEAN; Protocol Lactated Ringer's (Ringers, Lactated) 1,000 mls @ 100 mls/hr IV ASDIRECTED JEAN Last Admin: 03/13/18 19:12 Dose: 100 mls/hr Lactated Ringer's (Ringers, Lactated) 1,000 mls @ 40 mls/hr IV ASDIRECTED JEAN Last Admin: 03/13/18 18:00 Dose: 999 mls/hr Oxytocin/Lactated Ringer's (Pitocin In Lr 10 Units/1,000 Ml) 10 unit in 1,000 mls @ 100 mls/hr IV .CONTINUOUS JEAN Last Admin: 03/14/18 01:04 Dose: 500 mls/hr Ampicillin Sodium 1 gm/ Sodium (Chloride) 100 mls @ 200 mls/hr IV Q4H JEAN Last Admin: 03/13/18 23:17 Dose: 200 mls/hr Oxytocin/Lactated Ringer's (Pitocin In Lr 10 Units/1,000 Ml) 10 unit in 1,000 mls @ 12 mls/hr IV TITRATE JEAN; Protocol Last Titration: 03/14/18 00:31 Dose: 500 mls/hr Nalbuphine HCl (Nubain) 10 mg IVPUSH Q2H PRN PRN Reason: Pain (moderate 4-6) Ondansetron HCl (Zofran) 4 mg IVPUSH ONETIME PRN PRN Reason: Nausea/Vomiting Ondansetron HCl (Zofran) 4 mg IVPUSH Q4H PRN PRN Reason: Nausea/Vomiting Sodium Chloride (Saline Flush) 10 ml FLUSH ASDIRECTED PRN PRN Reason: Keep Vein Open Discontinued Medications Hydralazine HCl (Apresoline) 10 mg IVPUSH ONETIME ONE Stop: 03/13/18 09:22 Last Admin: 03/13/18 09:26 Dose: 10 mg Hydralazine HCl (Apresoline) Confirm Administered Dose 20 mg .ROUTE .STK-MED ONE Stop: 03/13/18 09:23 Last Admin: 03/13/18 10:49 Dose: Not Given Hydrocortisone (Hydrocortisone 1% Crm) 30 gm TOP ASDIRECTED PRN PRN Reason: Itching Hydrocortisone (Hydrocortisone 1% Crm) 0 gm TOP ONETIME ONE Stop: 03/13/18 01:27 Last Admin: 03/13/18 01:51 Dose: 1 applic Ampicillin Sodium 2 gm/ Sodium (Chloride) 100 mls @ 200 mls/hr IV ONETIME ONE Stop: 03/13/18 04:29 Last Admin: 03/13/18 14:10 Dose: Not Given Ampicillin Sodium 1 gm/ Sodium (Chloride) 100 mls @ 200 mls/hr IV Q4H JEAN Last Admin: 03/13/18 14:09 Dose: Not Given Ampicillin Sodium 2 gm/ Sodium (Chloride) 100 mls @ 200 mls/hr IV ONETIME ONE Stop: 03/13/18 11:59 Last Admin: 03/13/18 11:37 Dose: 200 mls/hr Lidocaine HCl (Xylocaine 1%) Confirm Administered Dose 50 ml .ROUTE .STK-MED ONE Stop: 03/14/18 00:37 Last Admin: 03/14/18 00:55 Dose: Not Given Lidocaine HCl (Xylocaine 1%) 10 ml INJECT ONETIME ONE Stop: 03/14/18 00:44 Last Admin: 03/14/18 00:54 Dose: 10 ml Misoprostol (Cytotec) Confirm Administered Dose 25 mcg .ROUTE .STK-MED ONE Stop: 03/12/18 19:58 Last Admin: 03/13/18 01:15 Dose: Not Given Misoprostol (Cytotec) 25 mcg VAG Q4H PRN PRN Reason: cervical ripening Misoprostol (Cytotec) 25 mcg VAG Q4H PRN PRN Reason: cervical ripening Last Admin: 03/13/18 08:32 Dose: 25 mcg Misoprostol (Cytotec) Confirm Administered Dose 25 mcg .ROUTE .STK-MED ONE Stop: 03/13/18 00:18 Last Admin: 03/13/18 01:15 Dose: Not Given Misoprostol (Cytotec) Confirm Administered Dose 1,000 mcg .ROUTE .STK-MED ONE Stop: 03/14/18 00:33 Last Admin: 03/14/18 00:54 Dose: Not Given Misoprostol (Cytotec) 1,000 mcg PO ONETIME ONE Stop: 03/14/18 00:42 Last Admin: 03/14/18 00:54 Dose: 1,000 mcg Nalbuphine HCl (Nubain) 10 mg IVPUSH Q2H PRN PRN Reason: Pain (moderate 4-6) - Problem List & Annotations (1) GBS (group B Streptococcus carrier), +RV culture, currently SNOMED Code(s): 4922194730914, 693570888, 2375723785869 Code(s): O99.820 - STREPTOCOCCUS B CARRIER STATE COMPLICATING Status: Acute Current Visit: Yes (2) Rh negative status during SNOMED Code(s): 355612949 Code(s): O26.899 - OTH RELATED CONDITIONS, UNSPECIFIED TRIMESTER; Z67.91 - UNSPECIFIED BLOOD TYPE, RH NEGATIVE Status: Acute Current Visit: Yes (3) Anxiety SNOMED Code(s): 52075183 Code(s): F41.9 - ANXIETY DISORDER, UNSPECIFIED Status: Acute Current Visit: Yes (4) Spondylolisthesis SNOMED Code(s): 633255959 Code(s): M43.10 - SPONDYLOLISTHESIS, SITE UNSPECIFIED Status: Acute Current Visit: Yes (5) 40 weeks gestation of SNOMED Code(s): 26850680 Code(s): Z3A.40 - 40 WEEKS GESTATION OF Status: Acute Current Visit: Yes (6) Pre-eclampsia SNOMED Code(s): 823064743 Code(s): O14.90 - UNSPECIFIED PRE-ECLAMPSIA, UNSPECIFIED TRIMESTER Status: Acute Current Visit: Yes - Problem List Review Problem List Initiated/Reviewed/Updated: Yes - My Orders Last 24 Hours: My Active Orders 03/13/18 07:15 Nalbuphine [Nubain] 10 mg IVPUSH Q2H PRN 03/13/18 13:00 Oxytocin/Lactated Ringers [Pitocin in LR 10 Units/1,000 ML] 10 unit in 1,000 ml IV TITRATE 03/13/18 15:30 Ampicillin 1 gm Sodium Chloride 0.9% [Normal Saline] 100 ml IV Q4H 03/14/18 01:13 Patient Status Manage Transfer [TRANSFER] Routine - Plan Plan:: Admit to inpatient following normal spontaneous vaginal delivery Continue Pitocin per unit protocol following delivery of placenta and lactated Ringer's until tolerating regular diet Regular diet Vitals per unit routine, continue to monitor closely for elevated blood pressures that would indicate need for additional management Ibuprofen and Tylenol for pain control Assist with breast-feeding as needed Continue to monitor lochia RhoGAM for mother of as indicated by blood type Anticipate discharge home on day #1 or #2 Ender Cosby MD 1:25 AM 03/14/2018
[2018-03-14] MEDS ORDERED: Lanolin 100% Cream 7 GM Tube TOP PRN (01:45)
[2018-03-14] MEDS ORDERED: Docusate Sodium 100 MG Cap PO PRN (01:45)
[2018-03-14] MEDS ORDERED: Benzocaine/Menthol 20%-0.5% Spray 56 GM Canister TOP PRN (01:45)
[2018-03-14] MEDS ORDERED: Acetaminophen 325 MG Tab PO PRN (01:45)
[2018-03-14] MEDS ORDERED: Oxytocin/Lactated Ringers 10 UNIT/1,000 ML BAG IV SCH (01:45)
[2018-03-14] MEDS ORDERED: Hydrocortisone Acetate 25 MG Supp RECTAL PRN (01:45)
[2018-03-14] MEDS ORDERED: Magnesium Hydroxide 400 MG/5 ML Susp 30 ML Cup PO PRN (01:45)
[2018-03-14] MEDS: Ibuprofen 600 MG Tab PO PRN (02:35)
[2018-03-14] MEDS: Witch Hazel Medicated Pads 100/Jar TOP PRN (02:35)
[2018-03-14] MEDS: Prenatal Multivitamin with Calcium/Folic Acid/Iron Tab PO SCH (12:27)
--- NOTE | 2018-03-14 18:07 | PCM48HPAN ---
Post Anesthesia Note - EVALUATION WITHIN 48HRS OF ANESTHETIC Vital Signs in Normal Range: Yes Patient Participated in Evaluation: Yes Respiratory Function Stable: Yes Airway Patent: Yes Cardiovascular Function Stable: Yes Hydration Status Stable: Yes Pain Control Satisfactory: Yes Nausea and Vomiting Control Satisfactory: Yes Mental Status Recovered: Yes
[2018-03-15] MEDS: Witch Hazel Medicated Pads 100/Jar TOP PRN (07:43)
[2018-03-15] MEDS: Prenatal Multivitamin with Calcium/Folic Acid/Iron Tab PO SCH ×2 (07:43→09:57)
--- NOTE | 2018-03-15 08:32 | PCM.SN ---
- Free Text/Narrative Note: Post Progress Note PPD # 1 Subjective: Doing well overall. Ambulating without difficulty. Lochia minimal. Voiding without difficulty. Tolerating regular diet without nausea or vomiting. Pain controlled with oral medications. Reports that she is having some pain around her umbilicus. Describes it as a sharp pain. Breast feeding with some difficulty with having difficulty producing enough milk for her at this time. Giving small amounts of supplementation as needed. Objective: Vitals: Vital Signs - 24 hr 03/14/18 03/14/18 03/14/18 08:32 16:43 21:15 Temperature 36.8 C 36.2 C Pulse, 74 88 87 Peripheral Respiratory 14 15 16 Rate Blood Pressure 138/94 H 131/69 136/84 O2 Sat by Pulse 99 100 100 Oximetry 03/15/18 03/15/18 03:57 07:51 Temperature 36.4 C 36.6 C Pulse, 83 74 Peripheral Respiratory 15 16 Rate Blood Pressure 134/75 122/74 O2 Sat by Pulse 100 100 Oximetry Physical Exam General: Alert and oriented, no acute distress Lungs: Clear to auscultation bilaterally Heart: Regular rate and rhythm Abdomen: Soft, minimal appropriate tenderness, non-distended, fundus midline, nontender, and at the umbilicus. Small amount of edematous tissue around the umbilicus. Difficult to assess for possible umbilical hernia. Do not suspect umbilical hernia at this time. Extremities: 1+ edema in extremities up to the knees in bilateral lower extremities Laboratory Tests 03/12/18 03/12/18 03/12/18 Range/Units 20:49 20:49 20:49 WBC 12.03 H (3.98-10.04) K/mm3 RBC 4.08 (3.98-5.22) M/mm3 Hgb 12.0 (11.2-15.7) gm/L Hct 35.5 (34.1-44.9) % MCV 87.0 (79.4-94.8) fl MCH 29.4 (25.6-32.2) pg MCHC 33.8 (32.2-35.5) g/dl RDW Std Deviation 43.3 (36.4-46.3) fL Plt Count 223 (182-369) K/mm3 MPV 9.8 (9.4-12.3) fl Neut % (Auto) (34.0-71.1) % Lymph % (Auto) (19.3-51.7) % [place] % (Auto) (4.7-12.5) % Eos % (Auto) (0.7-5.8) Baso % (Auto) (0.1-1.2) % Neut # (Auto) (1.56-6.13) K/mm3 Lymph # (Auto) (1.18-3.74) K/mm3 [place] # (Auto) (0.24-0.36) K/mm3 Eos # (Auto) (0.04-0.36) K/mm3 Baso # (Auto) (0.01-0.08) K/mm3 Sodium 137 (136-145) mEq/L Potassium 3.9 (3.5-5.1) mEq/L Chloride 105 (98-107) mEq/L Carbon Dioxide 20 L (21-32) mEq/L Anion Gap 15.9 H (5-15) BUN 11 (7-18) mg/dL Creatinine 0.7 (0.55-1.02) mg/dL Est Cr Clr Drug Dosing 111.01 mL/min Estimated GFR (MDRD) > 60 (>60) mL/min BUN/Creatinine Ratio 15.7 (14-18) Glucose 109 H (74-106) mg/dL Calcium 8.9 (8.5-10.1) mg/dL Total Bilirubin 0.1 L (0.2-1.0) mg/dL AST 20 (15-37) U/L ALT 22 (14-59) U/L Alkaline Phosphatase 145 H (46-116) U/L Total Protein 6.5 (6.4-8.2) g/dl Albumin 2.6 L (3.4-5.0) g/dl Globulin 3.9 gm/dL Albumin/Globulin Ratio 0.7 L (1-2) Ur Random Creatinine (30.0-125.0) mg/dL U Random Total Protein (0.0-11.8) mg/dL Protein/Creatinin Ratio (0-149) mg/g RPR Non-reactive (NONREACTIVE) 03/13/18 03/14/18 Range/Units 02:50 12:05 WBC 17.33 H (3.98-10.04) K/mm3 RBC 3.15 L (3.98-5.22) M/mm3 Hgb 9.2 L (11.2-15.7) gm/L Hct 27.7 L (34.1-44.9) % MCV 87.9 (79.4-94.8) fl MCH 29.2 (25.6-32.2) pg MCHC 33.2 (32.2-35.5) g/dl RDW Std Deviation 43.6 (36.4-46.3) fL Plt Count 209 (182-369) K/mm3 MPV 9.6 (9.4-12.3) fl Neut % (Auto) 79.8 H (34.0-71.1) % Lymph % (Auto) 11.4 L (19.3-51.7) % [place] % (Auto) 7.6 (4.7-12.5) % Eos % (Auto) 0.6 L (0.7-5.8) Baso % (Auto) 0.2 (0.1-1.2) % Neut # (Auto) 13.84 H (1.56-6.13) K/mm3 Lymph # (Auto) 1.98 (1.18-3.74) K/mm3 [place] # (Auto) 1.31 H (0.24-0.36) K/mm3 Eos # (Auto) 0.10 (0.04-0.36) K/mm3 Baso # (Auto) 0.03 (0.01-0.08) K/mm3 Sodium (136-145) mEq/L Potassium (3.5-5.1) mEq/L Chloride (98-107) mEq/L Carbon Dioxide (21-32) mEq/L Anion Gap (5-15) BUN (7-18) mg/dL Creatinine (0.55-1.02) mg/dL Est Cr Clr Drug Dosing mL/min Estimated GFR (MDRD) (>60) mL/min BUN/Creatinine Ratio (14-18) Glucose (74-106) mg/dL Calcium (8.5-10.1) mg/dL Total Bilirubin (0.2-1.0) mg/dL AST (15-37) U/L ALT (14-59) U/L Alkaline Phosphatase (46-116) U/L Total Protein (6.4-8.2) g/dl Albumin (3.4-5.0) g/dl Globulin gm/dL Albumin/Globulin Ratio (1-2) Ur Random Creatinine 35.2 (30.0-125.0) mg/dL U Random Total Protein 18.8 H (0.0-11.8) mg/dL Protein/Creatinin Ratio 534.1 H (0-149) mg/g RPR (NONREACTIVE) ASSESSMENT: 27-year-old female 001 s/p normal vaginal delivery PPD #1, complicated by preeclampsia without severe features during labor, Rh- status, GBS positive, excessive weight gain during , PUPPS and history of spondylolisthesis PLAN: Doing well Breast feeding with some difficulty. Assist as needed. Continue with formula supplementation as needed. Lochia minimal. Continue to monitor for appropriate lochia. Continue routine care Patient with A- blood type and with A- blood type. RhoGAM not indicated. Patient with slightly lower than anticipated hematocrit after delivery. Will continue to monitor vitals for signs of acute blood loss anemia. Anticipate discharge home tomorrow Ender Cosby MD 8:30 AM 03/15/2018
[2018-03-15] MEDS: Ibuprofen 600 MG Tab PO PRN (21:48)
[2018-03-16 08:09] VITALS: BP 127/71
[2018-03-16] MEDS: Prenatal Multivitamin with Calcium/Folic Acid/Iron Tab PO SCH (08:09)
[2018-03-16] MEDS: Ibuprofen 600 MG Tab PO PRN (08:13)
--- NOTE | 2018-03-16 09:21 | PCM.SN ---
- Free Text/Narrative Note: Post Progress Note PPD # 2 Subjective: Doing well overall. Ambulating without difficulty. Lochia minimal. Voiding without difficulty. Tolerating regular diet without nausea or vomiting. Pain controlled with oral medications. Reports that she is having some pain around her umbilicus but it is improving. Breast feeding with minimal difficulty. Giving small amounts of supplementation as needed. Reports that her rash continues to have some itching but is overall improving. Objective: Vitals: Vital Signs - 24 hr 03/15/18 03/15/18 03/16/18 15:00 21:49 03:00 Temperature 37.2 C Temperature [ 36.8 C 36.9 C Temporal] Pulse, 88 Peripheral Pulse, 86 82 Peripheral [ Pulse Oximetry] Respiratory 15 16 16 Rate Blood Pressure 138/73 Blood Pressure 118/78 121/75 [Upper Arm] O2 Sat by Pulse 98 99 98 Oximetry 03/16/18 08:08 Temperature 36.6 C Temperature [ Temporal] Pulse, 87 Peripheral Pulse, Peripheral [ Pulse Oximetry] Respiratory 16 Rate Blood Pressure 127/71 Blood Pressure [Upper Arm] O2 Sat by Pulse 98 Oximetry Physical Exam General: Alert and oriented, no acute distress Lungs: Clear to auscultation bilaterally Heart: Regular rate and rhythm Abdomen: Soft, minimal appropriate tenderness, non-distended, fundus midline, nontender, and at the umbilicus. Decreased amount of edematous tissue around the umbilicus. Do not suspect umbilical hernia at this time. Extremities: 1+ edema in extremities up to the knees in bilateral lower extremities but improved from yesterday ASSESSMENT: 27-year-old female 001 s/p normal vaginal delivery PPD #2, complicated by preeclampsia without severe features during labor, Rh- status, GBS positive, excessive weight gain during , PUPPS and history of spondylolisthesis PLAN: Doing well Breast feeding with some difficulty. Assist as needed. Continue with formula supplementation as needed. Lochia minimal. Continue to monitor for appropriate lochia. Continue routine care Patient with A- blood type and infant with A- blood type. RhoGAM not indicated. Discharge home today Ender Cosby MD 9:18 AM 03/16/2018
--- NOTE | 2018-03-16 09:28 | PCM.DCSUM1 ---
Discharge Summary - Hospital Course Free Text/Narrative:: Stage I: Evelia Lu was admitted for elective induction of labor. On admission her cervix was dilated to 1 cm. She was GBS positive. She was given Cytotec 25 mcg for initial induction of labor and received 2 doses overnight. During then initial night of her in induction she was having consistent blood pressures into the 140s/90s to 100s. Labs were drawn including urine protein/ creatinine ratio that came back elevated at 0.534. Given her elevated blood pressures and the urine protein/creatinine ratio she was diagnosed with preeclampsia without severe features. After the second dose she started having regular contractions every 1.5-2 minutes and was not given the third dose initially. In the morning of hospital day #2 she had a 24 [place] Stone bulb placed for additional induction of labor. She was given third dose of Cytotec 25 mcg at time of placement of the Stone bulb. After having the Stone bulb placed she had a severe sustained blood pressure that was into the 160s to 170s/ 90s to 100s. She was given 1 dose of hydralazine 10 mg IV and this resolved her blood pressure. She was started on ampicillin for GBS prophylaxis and received a total of 4 doses prior to delivery. The Stone bulb came out and she was transitioned to Pitocin for continued augmentation of labor. She had spontaneous rupture membranes with meconium-stained fluid. On exam she had a fore bag that was noted and artificial rupture of membranes of this for bag was completed with return of thick meconium fluid. She was given an epidural for anesthesia. She progressed to complete and pushing. Stage II: On 03/14/2018 she had a normal vaginal delivery of a live female infant at 0026. Apgars of 8 & 9. Weight of 3840 g (8 lbs 7 oz). Length of 19 inches. There was a single nuchal cord that was reduced prior to delivery. Infant was delivered in YULIANA position. The cord was doubly clamped and cut by father of the . was taken to the warmer for resuscitation by the awaiting talcer, Dr. Webb. Stage III: She had a spontaneous delivery of an intact placenta in Ladi presentation. Three vessel cord. She was given pitocin and fundal massage. She was given injection of 1% lidocaine for additional local anesthesia. She had a second-degree midline laceration that was repaired with 3-0 Vicryl. Mom and baby were stable to recovery. EBL of 600 mL. HPI Initial Comments: Stage I: Evelia Lu was admitted for elective induction of labor. On admission her cervix was dilated to 1 cm. She was GBS positive. She was given Cytotec 25 mcg for initial induction of labor and received 2 doses overnight. During then initial night of her in induction she was having consistent blood pressures into the 140s/90s to 100s. Labs were drawn including urine protein/ creatinine ratio that came back elevated at 0.534. Given her elevated blood pressures and the urine protein/creatinine ratio she was diagnosed with preeclampsia without severe features. After the second dose she started having regular contractions every 1.5-2 minutes and was not given the third dose initially. In the morning of hospital day #2 she had a 24 [place] Stone bulb placed for additional induction of labor. She was given third dose of Cytotec 25 mcg at time of placement of the Stone bulb. After having the Stone bulb placed she had a severe sustained blood pressure that was into the 160s to 170s/ 90s to 100s. She was given 1 dose of hydralazine 10 mg IV and this resolved her blood pressure. She was started on ampicillin for GBS prophylaxis and received a total of 4 doses prior to delivery. The Stone bulb came out and she was transitioned to Pitocin for continued augmentation of labor. She had spontaneous rupture membranes with meconium-stained fluid. On exam she had a fore bag that was noted and artificial rupture of membranes of this for bag was completed with return of thick meconium fluid. She was given an epidural for anesthesia. She progressed to complete and pushing. Stage II: On 03/14/2018 she had a normal vaginal delivery of a live female infant at 0026. Apgars of 8 & 9. Weight of 3840 g (8 lbs 7 oz). Length of 19 inches. There was a single nuchal cord that was reduced prior to delivery. Infant was delivered in YUL[place] position. The cord was doubly clamped and cut by father of the infant. Infant was taken to the warmer for resuscitation by the awaiting talcer, Dr. Webb. Stage III: She had a spontaneous delivery of an intact placenta in [place] presentation. Three vessel cord. She was given pitocin and fundal massage. She was given injection of 1% lidocaine for additional local anesthesia. She had a second-degree midline laceration that was repaired with 3-0 Vicryl. Mom and baby were stable to recovery. EBL of 600 mL. Brief History: Stage I: Evelia Lu was admitted for elective induction of labor. On admission her cervix was dilated to 1 cm. She was GBS positive. She was given Cytotec 25 mcg for initial induction of labor and received 2 doses overnight. During then initial night of her in induction she was having consistent blood pressures into the 140s/90s to 100s. Labs were drawn including urine protein/creatinine ratio that came back elevated at 0.534. Given her elevated blood pressures and the urine protein/creatinine ratio she was diagnosed with preeclampsia without severe features. After the second dose she started having regular contractions every 1.5-2 minutes and was not given the third dose initially. In the morning of hospital day #2 she had a 24 [place] Stone bulb placed for additional induction of labor. She was given third dose of Cytotec 25 mcg at time of placement of the Stone bulb. After having the Stone bulb placed she had a severe sustained blood pressure that was into the 160s to 170s/90s to 100s. She was given 1 dose of hydralazine 10 mg IV and this resolved her blood pressure. She was started on ampicillin for GBS prophylaxis and received a total of 4 doses prior to delivery. The Stone bulb came out and she was transitioned to Pitocin for continued augmentation of labor. She had spontaneous rupture membranes with meconium-stained fluid. On exam she had a fore bag that was noted and artificial rupture of membranes of this for bag was completed with return of thick meconium fluid. She was given an epidural for anesthesia. She progressed to complete and pushing. Stage II: On 03/14/2018 she had a normal vaginal delivery of a live female at 0026. Apgars of 8 & 9. Weight of 3840 g (8 lbs 7 oz). Length of 19 inches. There was a single nuchal cord that was reduced prior to delivery. was delivered in [place] position. The cord was doubly clamped and cut by father of the infant. Infant was taken to the warmer for resuscitation by the awaiting talcer, Dr. Webb. Stage III: She had a spontaneous delivery of an intact placenta in [place] presentation. Three vessel cord. She was given pitocin and fundal massage. She was given injection of 1% lidocaine for additional local anesthesia. She had a second-degree midline laceration that was repaired with 3 -0 Vicryl. Mom and baby were stable to recovery. EBL of 600 mL. Diagnosis: Stroke: No - Discharge Data Discharge Date: 03/16/18 Discharge Disposition: Home, Self-Care 01 Condition: Good - Discharge Diagnosis/Problem(s) (1) GBS (group B Streptococcus carrier), +RV culture, currently SNOMED Code(s): 7819600533775, [id number], 7057206783529 ICD Code: O99.820 - STREPTOCOCCUS B CARRIER STATE COMPLICATING Status: Acute Current Visit: Yes (2) Rh negative status during SNOMED Code(s): 293161481 ICD Code: O26.899 - OTH RELATED CONDITIONS, UNSPECIFIED TRIMESTER; Z67.91 - UNSPECIFIED BLOOD TYPE, RH NEGATIVE Status: Acute Current Visit: Yes (3) Anxiety SNOMED Code(s): 66990720 ICD Code: F41.9 - ANXIETY DISORDER, UNSPECIFIED Status: Acute Current Visit: Yes (4) Spondylolisthesis SNOMED Code(s): 518452139 ICD Code: M43.10 - SPONDYLOLISTHESIS, SITE UNSPECIFIED Status: Acute Current Visit: Yes (5) 40 weeks gestation of SNOMED Code(s): 86640713 ICD Code: Z3A.40 - 40 WEEKS GESTATION OF Status: Acute Current Visit: Yes (6) Pre-eclampsia SNOMED Code(s): 983173827 ICD Code: O14.90 - UNSPECIFIED PRE-ECLAMPSIA, UNSPECIFIED TRIMESTER Status : Acute Current Visit: Yes (7) Vaginal delivery SNOMED Code(s): 834355862 ICD Code: O80 - ENCOUNTER FOR FULL-TERM UNCOMPLICATED DELIVERY Status: Acute Current Visit: Yes (8) Second degree perineal laceration during delivery SNOMED Code(s): 5420321 ICD Code: O70.1 - SECOND DEGREE PERINEAL LACERATION DURING DELIVERY Status : Acute Current Visit: Yes - Patient Summary/Data Operative Procedure(s) Performed: None Complications: Pre-eclampsia without severe features developed during induction Hospital Course: Evette Lu was admitted for elective induction of labor. On admission her cervix was dilated to 1 cm. She was GBS positive. She was given Cytotec for induction of labor overnight and received 2 doses initially. She was diagnosed with preeclampsia without severe features after she had persistent blood pressures into the 140s/90s to 100s and a urine protein/creatinine ratio came back at 0.534. In the morning of hospital day #2 she had a 24 [place] Stone bulb placed for additional induction of labor. She is given a third dose of Cytotec at time of placement of the Stone bulb. She had a severe sustained blood pressure that was into the 160s to 170s/90s to 100s and sustained over 15 minutes. She was given 1 dose of hydralazine 10 mg IV and this resolved her blood pressure. She was started on ampicillin for GBS prophylaxis at this time and received a total of 4 doses prior to delivery. The Stone bulb came out and she transitioned to Pitocin for continued augmentation of labor. She had spontaneous rupture of membranes with meconium-stained fluid. On exam there was noted to be a fore bag present and a artificial rupture membranes was completed with return of thick meconium. She was given an epidural for anesthesia. She progressed to complete and began pushing. On 03/14/2018 she had a normal vaginal delivery of a live female at 0026. Apgars of 8 and 9. Weight of 3840 g (8 lbs. 7 oz.). Her course was uneventful. Her pain was well controlled and she had minimal lochia. She was ambulating, tolerating a regular diet and voiding normally. She was breast feeding with small amount of formula supplementation. She was afebrile and her hematocrit was 27.7 on day #0 approximately 8 hours after delivery. She desired to be discharged home on the morning of PPD #2. Her blood type is A- and infant's blood type is A-. RhoGAM not indicated. - Patient Instructions Diet: Regular Diet as Tolerated Activity: Apply Ice, As Tolerated Activity, Other: Nothing in the vagina for 6 weeks Driving: May Drive Today Showering/Bathing: May Shower Notify Provider of: Fever, Increased Pain, Swelling and Redness, Drainage, Nausea and/or Vomiting Other/Special Instructions: Please contact your physician's office if you have heavy vaginal bleeding enough to soak a pad in less than an hour for several hours. Monitor for any signs of an infection in the breasts with severe pain or redness of the breast. - Discharge Plan *PRESCRIPTION DRUG MONITORING PROGRAM REVIEWED*: Not Applicable *COPY OF PRESCRIPTION DRUG MONITORING REPORT IN PATIENT HUMPHREY: Not Applicable Patient Handouts: Vaginal Delivery, Care After, Care of a Perineal Tear Referrals: Ender Cosby MD [Primary Care Provider] - (Follow-up in 1 week for blood pressure and check.) - Discharge Summary/Plan Comment DC Time >30 min.: No - Patient Data Vitals - Most Recent: Last Vital Signs Temp 36.6 C 03/16/18 08:08 Pulse 87 03/16/18 08:08 Resp 16 03/16/18 08:08 BP 127/71 03/16/18 08:08 Pulse Ox 98 03/16/18 08:08 Weight - Most Recent: 119.295 kg Med Orders - Current: Current Medications Acetaminophen (Tylenol) 650 mg PO Q6H PRN PRN Reason: mild pain or fever Benzocaine/Menthol (Dermoplast Pain Relief [place]) 0 gm TOP ASDIRECTED PRN PRN Reason: Perineal Comfort Measure Last Admin: 03/14/18 02:35 Dose: 1 applic Docusate Sodium (Colace) 100 mg PO BID PRN PRN Reason: Constipation Emollient Ointment (Lansinoh Hpa) 0 gm TOP ASDIRECTED PRN PRN Reason: Sore Nipples Last Admin: 03/14/18 12:27 Dose: 1 tube Hydrocortisone Acetate (Anucort-Hc) 25 mg RECTAL BID PRN PRN Reason: Hemorrhoid pain Oxytocin/Lactated Ringer's (Pitocin In Lr 10 Units/1,000 Ml) 10 unit in 1,000 mls @ 100 mls/hr IV TITRATE JEAN; Protocol Ibuprofen (Motrin) 600 mg PO Q6H PRN PRN Reason: Mild pain or fever Last Admin: 03/16/18 08:13 Dose: 600 mg Magnesium Hydroxide (Milk Of Magnesia) 30 ml PO BEDTIME PRN PRN Reason: Constipation Prenat Multivit/[place]/Iron/Folic Ac ( Plus Iron) 1 each PO DAILY JEAN Last Admin: 03/16/18 08:09 Dose: 1 each Witch Kay (Tucks) 1 pad TOP ASDIRECTED PRN PRN Reason: Hemorrhoid pain Last Admin: 03/15/18 07:43 Dose: 1 box Discontinued Medications Bupivacaine HCl (Sensorcaine-Mpf 0.25%) 10 ml .ROUTE .STK-MED ONE Stop: 03/13/18 22:01 Ephedrine Sulfate (Ephedrine Sulfate) 5 mg IVPUSH ASDIRECTED PRN PRN Reason: Hypotension Fentanyl (Sublimaze) 100 mcg EPIDUR Q3H PRN PRN Reason: Pain Last Admin: 03/13/18 17:54 Dose: 100 mcg Fentanyl/Bupivacaine HCl (Lcqyypzr-Uvjwi-Zb 2 Mcg/Ml-0.125%) 100 ml EP ASDIRECTED JEAN Last Admin: 03/13/18 17:55 Dose: 100 ml Hydralazine HCl (Apresoline) 10 mg IVPUSH ONETIME ONE Stop: 03/13/18 09:22 Last Admin: 03/13/18 09:26 Dose: 10 mg Hydralazine HCl (Apresoline) Confirm Administered Dose 20 mg .ROUTE .STK-MED ONE Stop: 03/13/18 09:23 Last Admin: 03/13/18 10:49 Dose: Not Given Hydrocortisone (Hydrocortisone 1% Crm) 30 gm TOP ASDIRECTED PRN PRN Reason: Itching Hydrocortisone (Hydrocortisone 1% Crm) 0 gm TOP ONETIME ONE Stop: 03/13/18 01:27 Last Admin: 03/13/18 01:51 Dose: 1 applic Hydroxyzine HCl (Atarax) 25 mg PO Q6H PRN PRN Reason: Itching Last Admin: 03/12/18 23:00 Dose: 25 mg Phenylephrine HCl 1 mg/ Sodium (Chloride) 10.1 mls @ 1 mls/sec IV TITRATE JEAN; Protocol Ampicillin Sodium 2 gm/ Sodium (Chloride) 100 mls @ 200 mls/hr IV ONETIME ONE Stop: 03/13/18 04:29 Last Admin: 03/13/18 14:10 Dose: Not Given Ampicillin Sodium 1 gm/ Sodium (Chloride) 100 mls @ 200 mls/hr IV Q4H [facility] Last Admin: 03/13/18 14:09 Dose: Not Given Lactated Ringer's (Ringers, Lactated) 1,000 mls @ 100 mls/hr IV ASDIRECTED [facility] Last Admin: 03/13/18 19:12 Dose: 100 mls/hr Lactated Ringer's (Ringers, Lactated) 1,000 mls @ 40 mls/hr IV ASDIRECTED JEAN Last Admin: 03/13/18 18:00 Dose: 999 mls/hr Oxytocin/Lactated Ringer's (Pitocin In Lr 10 Units/1,000 Ml) 10 unit in 1,000 mls @ 100 mls/hr IV .CONTINUOUS JEAN Last Admin: 03/14/18 01:04 Dose: 500 mls/hr Ampicillin Sodium 2 gm/ Sodium (Chloride) 100 mls @ 200 mls/hr IV ONETIME ONE Stop: 03/13/18 11:59 Last Admin: 03/13/18 11:37 Dose: 200 mls/hr Ampicillin Sodium 1 gm/ Sodium (Chloride) 100 mls @ 200 mls/hr IV Q4H JEAN Last Admin: 03/13/18 23:17 Dose: 200 mls/hr Oxytocin/Lactated Ringer's (Pitocin In Lr 10 Units/1,000 Ml) 10 unit in 1,000 mls @ 12 mls/hr IV TITRATE JEAN; Protocol Last Titration: 03/14/18 00:31 Dose: 500 mls/hr Lidocaine HCl (Xylocaine 1%) Confirm Administered Dose 50 ml .ROUTE .STK-MED ONE Stop: 03/14/18 00:37 Last Admin: 03/14/18 00:55 Dose: Not Given Lidocaine HCl (Xylocaine 1%) 10 ml INJECT ONETIME ONE Stop: 03/14/18 00:44 Last Admin: 03/14/18 00:54 Dose: 10 ml Misoprostol (Cytotec) Confirm Administered Dose 25 mcg .ROUTE .STK-MED ONE Stop: 03/12/18 19:58 Last Admin: 03/13/18 01:15 Dose: Not Given Misoprostol (Cytotec) 25 mcg VAG Q4H PRN PRN Reason: cervical ripening Misoprostol (Cytotec) 25 mcg VAG Q4H PRN PRN Reason: cervical ripening Last Admin: 03/13/18 08:32 Dose: 25 mcg Misoprostol (Cytotec) Confirm Administered Dose 25 mcg .ROUTE .STK-MED ONE Stop: 03/13/18 00:18 Last Admin: 03/13/18 01:15 Dose: Not Given Misoprostol (Cytotec) Confirm Administered Dose 1,000 mcg .ROUTE .STK-MED ONE Stop: 03/14/18 00:33 Last Admin: 03/14/18 00:54 Dose: Not Given Misoprostol (Cytotec) 1,000 mcg PO ONETIME ONE Stop: 03/14/18 00:42 Last Admin: 03/14/18 00:54 Dose: 1,000 mcg Nalbuphine HCl (Nubain) 10 mg IVPUSH Q2H PRN PRN Reason: Pain (moderate 4-6) Nalbuphine HCl (Nubain) 10 mg IVPUSH Q2H PRN PRN Reason: Pain (moderate 4-6) Ondansetron HCl (Zofran) 4 mg IVPUSH ONETIME PRN PRN Reason: Nausea/Vomiting Ondansetron HCl (Zofran) 4 mg IVPUSH Q4H PRN PRN Reason: Nausea/Vomiting Sodium Chloride (Saline Flush) 10 ml FLUSH ASDIRECTED PRN PRN Reason: Keep Vein Open
== END 2018-03-16 12:10 | disposition home or self-care (01) | DRG 807 ==
LOC: JD.OB 00:26 → OBSVTOIN 03-14 00:26 → JD.OB 03-14 00:27
PROVIDERS: ADMIT Obstetrics & Gynecology; ATTEND Obstetrics & Gynecology
PROC: 00HU33Z Insertion of Infusion Device into Spinal Canal, Percutaneous Approach (ICD-10-PCS; 2018-03-13)
PROC: 3E0R3BZ Introduction of Anesthetic Agent into Spinal Canal, Percutaneous Approach (ICD-10-PCS; 2018-03-13)
PROC: 0U7C7ZZ Dilation of Cervix, Via Natural or Artificial Opening (ICD-10-PCS; principal; 2018-03-14)
PROC: 10E0XZZ Delivery of Products of Conception, External Approach (ICD-10-PCS; principal; 2018-03-14)
PROC: 0KQM0ZZ Repair Perineum Muscle, Open Approach (ICD-10-PCS; principal; 2018-03-14)
PROC: 3E0P7VZ Introduction of Hormone into Female Reproductive, Via Natural or Artificial Opening (ICD-10-PCS; principal; 2018-03-14)
PROC: 10907ZC Drainage of Amniotic Fluid, Therapeutic from Products of Conception, Via Natural or Artificial Opening (ICD-10-PCS; principal; 2018-03-14)
DX: O99.344 Other mental disorders complicating childbirth (principal); Z37.0 Single live birth; O99.824 Streptococcus B carrier state complicating childbirth; O14.94 Unspecified pre-eclampsia, complicating childbirth; O77.0 Labor and delivery complicated by meconium in amniotic fluid; O69.81X0 Labor and delivery complicated by cord around neck, without compression, not applicable or unspecified; O70.1 Second degree perineal laceration during delivery; F41.9 Anxiety disorder, unspecified; O75.89 Other specified complications of labor and delivery; M43.10 Spondylolisthesis, site unspecified; Z3A.39 39 weeks gestation of pregnancy; O26.86 Pruritic urticarial papules and plaques of pregnancy (PUPPP); F32.9 Major depressive disorder, single episode, unspecified; O99.62 Diseases of the digestive system complicating childbirth; K21.9 Gastro-esophageal reflux disease without esophagitis
CPT/HCPCS: 01967; 36415; 51701; 51702; 59025; 59409; 80053; 82570; 84156; 85025; 85027; 86592; A9270-GY; J0290; J0360; J2001; J2590; J3010; J3490; J7030; J7120

== ENCOUNTER 2020-08-11 07:08 | Inpatient (IN) | payer OTHER ==
[2020-08-11] MEDS ORDERED: Nalbuphine 10 MG/1 ML Vial IVPUSH PRN (09:38)
[2020-08-11] MEDS ORDERED: Calcium Carbonate 500 MG Tab.Chew PO PRN (09:38)
[2020-08-11] MEDS ORDERED: Sodium Chloride 0.9% 10 ML Syringe FLUSH PRN (09:38)
[2020-08-11] MEDS ORDERED: Ondansetron 4 MG/2 ML SDV IVPUSH PRN (09:38)
[2020-08-11] MEDS ORDERED: Oxytocin/Lactated Ringers 10 UNIT/1,000 ML BAG IV SCH ×3 (09:45→23:46)
[2020-08-11] MEDS: Lactated Ringers 1,000 ML IV SCH ×3 (10:59→17:46)
--- NOTE | 2020-08-11 11:59 | PCM.LDHP ---
L&D History of Present Illness - General Date of Service: 08/11/20 Admit Problem/Dx: Patient Status Order with Admit Dx/Problem 08/11/20 09:38 Patient Status [ADT] Routine Admission Diagnosis/Problem Admission Diagnosis/Problem Source of Information: Patient History Limitations: Reports: No Limitations - History of Present Illness Introduction:: Evette Villa is a 29-year-old -0-0-1 female at 40 weeks 1 day ([place] 08/10/2020) by LMP consistent with a 6-week ultrasound who presents for elective induction of labor. She reports that she has been having irregular contractions since her appointment last week with more of the contractions in the late afternoon and early evening. They would occur more when she is more active. They would last for around 30 to 60 seconds and would occur every 5 to 10 minutes apart. She denies any leaking of fluid but has had continued mucus discharge. Denies any vaginal bleeding. Reports good movement. Timing/Duration: Reports: intermittent (Contractions throughout the day) Location, : Reports: Pelvic Quality: Reports: Pressure Severity: Mild Improves with: Reports: None Worsens with: Reports: None Associated Symptoms: Reports: vaginal discharge (Mucus vaginal discharge). Devon es: vaginal bleeding, vaginal fluid Present Illness Comments:: Evette Villa is a 29-year-old -0-0-1 female at 40 weeks 1 day ([place] 08/10/2020) by LMP consistent with a 6-week ultrasound who presents for elective induction of labor. She has had routine care starting at 6 weeks gestational age. Her has been overall uncomplicated except for julianna roximately 70 pound weight gain during the . She received Tdap on 05/21/2020. She had the flu vaccine on 11/06/2019. She had the second dose of the COVID-19 vaccine on 05/07/2020. She received RhoGam on 05/21/2020. She has been on aspirin due to history of preeclampsia in her last and has not had any elevated blood pressures throughout this . Her is complicated by: * History of preeclampsia in her first , currently on aspirin, no elevated blood pressures during this * Anxiety and depression and had been on Ativan as needed for her symptoms but is not having any significant symptoms at this time. * Rh- status, she received RhoGam on 05/21/2020, infant should be checked for blood type after delivery and patient should be given RhoGam if indicated DOCUMENTATION NURSE history -0-0-1 G1: 03/14/2018, 40 weeks, , 8 pound 7 ounces, female , epidural for anesthesia, preeclampsia without severe features G2: Current labs Blood type: A- Antibody screen: Negative First trimester hematocrit/hemoglobin: 39.8%/13.2 on 02/05/2020 Platelets: 310 on 02/05/2020 Urine culture: Mixed daisy suggestive of contamination and Gardnerella vaginalis Rubella status: Immune Hepatitis B surface antigen: Negative RPR: Negative HIV: Negative Gonorrhea: Negative Chlamydia: Negative Anatomy ultrasound: Normal anatomy ultrasound, no abnormalities, anterior placenta, no previa, 51st percentile on ultrasound done on 07/16/2020 One hour glucose tolerance test: 181 Second trimester hematocrit/hemoglobin: 35.1%/11.3 on 05/21/2020 Platelets: 246 on 05/21/2020 3-hour glucose tolerance test: Fasting 79, 1 hour 143, 2-hour 124, 3-hour 112 GBS status: Negative - Related Data Allergies/Adverse Reactions: Allergies Allergy/AdvReac Type Severity Reaction Status Date / Time No Known Allergies Allergy Verified 08/11/20 09:53 Home Medications: Home Meds Aspirin 1 tab PO DAILY 08/11/20 [History] LORazepam [Ativan] 2 mg PO Q12HR PRN 08/11/20 [History] No122/Iron/Folic Acid [ Multi Tablet] 1 tab PO DAILY 08/11/20 [History] valACYclovir HCl [Valtrex] 1 tab PO DAILY 08/11/20 [History] Past Medical History HEENT History: Reports: None Gastrointestinal History: Reports: GERD Other Gastrointestinal History: Some diarrhea intermittently over past 3 weeks. DOCUMENTATION NURSE History: Reports: : 2 Para: 1 Musculoskeletal History: Reports: Other (See Below) Other Musculoskeletal History: Spondylolisthesis Psychiatric History: Reports: Anxiety, Depression Other Psychiatric History: takes lorazepam as needed Dermatologic History: Reports: Other (See Below) Other Dermatologic History: Preganancy rash; tiny, itchy bumps with reddenned skin on all parts of body - Past Surgical History HEENT Surgical History: Reports: Oral Surgery, Other (See Below) Other HEENT Surgeries/Procedures: [place] teeth pulled 2008 GI Surgical History: Reports: None Female Surgical History: Reports: None Musculoskeletal Surgical History: Reports: None Dermatological Surgical History: Reports: None Social & Family History - Family History Family Medical History: No Pertinent Family History - Tobacco Use Tobacco Use Status *Q: Never Tobacco User Second Hand Smoke Exposure: No - Tobacco Core Measures Tobacco Use/Smoking Within Last 30 Days: No Smokeless Tobacco Use in Last 30 Days: No - Caffeine Use Caffeine Use: Reports: None Other Caffeine Use: 1-2 coffee's daily - Alcohol Use Alcohol Use History: No - Recreational Drug Use Recreational Drug Use: No - Living Situation & Occupation Living situation: Reports: with Significant Other Occupation: Employed H&P Review of Systems - Review of Systems: Review Of Systems: See Below General: Denies: Fever, Chills, Malaise, Weakness, Fatigue HEENT: Reports: Post Nasal Drip, Sinus Congestion, Sore Throat. Denies: Headaches, Rhinitis, Visual Changes Pulmonary: Reports: Cough. Denies: Shortness of Breath, Wheezing, Pleuritic Chest Pain Cardiovascular: Denies: Chest Pain, Palpitations, Dyspnea on Exertion, Orthopnea Gastrointestinal: Reports: Diarrhea (for the last several weeks). Denies: Abdominal Pain, Constipation, Nausea, Vomiting Genitourinary: Denies: Dysuria, Frequency, Burning, Pain, Urgency Musculoskeletal: Reports: Back Pain (and hip pain of ) Skin: Denies: Rash, Lesions Psychiatric: Denies: Depression, Anxiety L&D Exam - Exam Exam: See Below - Vital Signs Vital Signs: Last Vital Signs Temp 36.8 C 08/11/20 07:38 Pulse 86 08/11/20 07:38 Resp 14 08/11/20 07:38 BP 145/76 H 08/11/20 07:38 Pulse Ox 99 08/11/20 07:38 Weight: 117.39 kg - OB Specific Contraction Duration (sec): 45-60 Contraction Frequency (min): 3-12 Contraction Intensity: Moderate Movement: Active Heart Tones: Present Heart Tones per Min: 135 (+15 x 15 accelerations, several prolonged decelerations when she first arrived at 830 and 9:00, no additional decelerations since then) Heart Rate (FHR) Variability: Moderate (6-25 bmp) Presentation: Vertex Estimated Weight: 7.5-8 pounds by Michele's - Barr Score Barr Score Cervix Position: Midposition Barr Score Consistency: Soft Barr Score Effacement: 51-70% (70%) Barr Score Dilation: 1-2 cm (2 cm) Barr Score 's Station: -3 Barr Score Total: 6 - Exam General: Alert, Oriented HEENT: Conjunctiva Clear, EOMI Neck: Supple, Trachea Midline Lungs: Clear to Auscultation, Normal Respiratory Effort Cardiovascular: Regular Rate, Regular Rhythm GI/Abdominal Exam: Soft, Non-Tender, No Distention, Other (Gravid). No: Guarding, Rigid, Rebound Genitourinary: Normal external exam Extremities: Normal Inspection, Non-Tender, Pedal Edema (Trace in bilateral lower extremities) Skin: Warm, Dry, Intact Psychiatric: Alert, Normal Affect, Normal Mood - Patient Data Lab Results Last 24 hrs: Laboratory Results - last 24 hr 08/11/20 08/11/20 Range/Units 07:40 09:57 WBC 12.97 H (3.98-10.04) K/mm3 RBC 4.19 (3.98-5.22) M/mm3 Hgb 12.0 (11.2-15.7) gm/dl Hct 36.1 (34.1-44.9) % MCV 86.2 (79.4-94.8) fl MCH 28.6 (25.6-32.2) pg MCHC 33.2 (32.2-35.5) g/dl RDW Std Deviation 43.3 (36.4-46.3) fL Plt Count 251 (182-369) K/mm3 MPV 10.0 (9.4-12.3) fl Neut % (Auto) 74.3 H (34.0-71.1) % Lymph % (Auto) 15.0 L (19.3-51.7) % [place] % (Auto) 9.6 (4.7-12.5) % Eos % (Auto) 0.6 L (0.7-5.8) Baso % (Auto) 0.2 (0.1-1.2) % Neut # (Auto) 9.63 H (1.56-6.13) K/mm3 Lymph # (Auto) 1.95 (1.18-3.74) K/mm3 [place] # (Auto) 1.25 H (0.24-0.36) K/mm3 Eos # (Auto) 0.08 (0.04-0.36) K/mm3 Baso # (Auto) 0.02 (0.01-0.08) K/mm3 SARS-CoV-2 RNA (AUBREY) Negative (NEGATIVE) Result Diagrams: 08/11/20 09:57 - Problem List (1) History of pre-eclampsia in prior , currently SNOMED Code(s): 184879002806569, 863577769952898 ICD Code: O09.299 - SUPRVSN OF PREG W POOR REPRODCTV OR OBSTET HISTORY, UNSP TRI Status: Acute Current Visit: Yes (2) 40 weeks gestation of SNOMED Code(s): 18521555 ICD Code: Z3A.40 - 40 WEEKS GESTATION OF Status: Acute Current Visit: No (3) Anxiety SNOMED Code(s): 93114494 ICD Code: F41.9 - ANXIETY DISORDER, UNSPECIFIED Status: Acute Current Visit: No (4) Dysuria SNOMED Code(s): 53099999 ICD Code: R30.0 - DYSURIA Status: Acute Current Visit: No Problem List Initiated/Reviewed/Updated: Yes Orders Last 24hrs: Active Orders 24 hr Category Date Time Status Patient Status [ADT] Routine ADT 08/11/20 09:38 Active Activity as Tolerated [RC] PFP Care 08/11/20 09:38 Active Communication Order [RC] ASDIRECTED Care 08/11/20 09:38 Active Heart Tones [RC] ASDIRECTED Care 08/11/20 09:38 Active Notify Provider [RC] PFP Care 08/11/20 09:38 Active Notify Provider [RC] PRN Care 08/11/20 09:38 Active Peripheral IV Care [RC] . DIRECTED Care 08/11/20 09:38 Active Urinary Catheter Assessment [RC] ASDIRECTED Care 08/11/20 09:38 Active Vital Signs [RC] PER UNIT ROUTINE Care 08/11/20 09:38 Active Regular Diet [DIET] Diet 08/11/20 Lunch Active CBC WITH AUTO DIFF [HEME] Stat Lab 08/11/20 09:57 Results HEP C VIRUS AB [REF] Routine Lab 08/11/20 09:57 Received RAPID PLASMA REAGIN,RPR [CHEM] Routine Lab 08/11/20 09:57 Received Calcium Carbonate [Tums] Med 08/11/20 09:38 Active 1,000 mg PO Q2H PRN Lactated Ringers [Ringers, Lactated] 1,000 ml Med 08/11/20 09:45 Active IV ASDIRECTED Nalbuphine [Nubain] Med 08/11/20 09:38 Active 10 mg IVPUSH Q2H PRN Ondansetron [Zofran] Med 08/11/20 09:38 Active 4 mg IVPUSH Q4H PRN Oxytocin/Lactated Ringers [Pitocin in LR 10 Units/1,000 Med 08/11/20 09:45 Active ML] 10 unit in 1,000 ml IV .CONTINUOUS Oxytocin/Lactated Ringers [Pitocin in LR 10 Units/1,000 Med 08/11/20 09:45 Active ML] 10 unit in 1,000 ml IV TITRATE Sodium Chloride 0.9% [Saline Flush] Med 08/11/20 09:38 Active 10 ml FLUSH ASDIRECTED PRN Electronic Heart Tones Ext w TOCO [WOMSER] Oth 08/11/20 09:38 Ordered Routine Electronic Heart Tones Internal [WOMSER] Per Unit Ot 08/11/20 09:38 Ordered Routine Peripheral IV Insertion Adult [OM.PC] Routine Oth 08/11/20 09:38 Ordered Resuscitation Status Routine Resus Stat 08/11/20 09:38 Ordered Medication Orders Calcium Carbonate/Glycine (Calcium Carbonate 500 Mg Tab.Chew) 1,000 mg PO Q2H PRN PRN Reason: Indigestion Lactated Ringer's (Ringers, Lactated) 1,000 mls @ 100 mls/hr IV ASDIRECTED JEAN Last Admin: 08/11/20 10:59 Dose: 100 mls/hr Documented by: IVANA Oxytocin/Lactated Ringer's (Pitocin In Lr 10 Units/1,000 Ml) 10 unit in 1,000 mls @ 12 mls/hr IV TITRATE JEAN; Protocol Last Admin: 08/11/20 10:59 Dose: 2 munits/min, 12 mls/hr Documented by: IVANA Oxytocin/Lactated Ringer's (Pitocin In Lr 10 Units/1,000 Ml) 10 unit in 1,000 mls @ 100 mls/hr IV .CONTINUOUS JEAN; Protocol Nalbuphine HCl (Nalbuphine 10 Mg/1 Ml Vial) 10 mg IVPUSH Q2H PRN PRN Reason: Pain Ondansetron HCl (Ondansetron 4 Mg/2 Ml Sdv) 4 mg IVPUSH Q4H PRN PRN Reason: Nausea/Vomiting Sodium Chloride (Sodium Chloride 0.9% 10 Ml Syringe) 10 ml FLUSH ASDIRECTED PRN PRN Reason: Keep Vein Open Assessment/Plan Comment:: Evette Villa is a 29-year-old -0-0-1 female at 40 weeks 1 day ([place] 08/10/2020) who is undergoing elective of induction of labor Refer to observation for elective induction of labor Start Pitocin for induction of labor Attempt was made to place transcervical Stone bulb but the cervix was too soft and stretchy with the Stone bulb in the correct position and it pulled through the cervical opening. Decision was made to not proceed with the Stone bulb placement Continuous monitoring Place IV and have Lactated Ringer's at 125 ml/hr May have small amounts of regular diet Activity as tolerated May have epidural as desired Plans to breast-feed after delivery Anticipate vaginal delivery unless otherwise indicated MD Judi 12:05 PM 08/11/2020
--- NOTE | 2020-08-11 14:53 | PCM.PNLD ---
Labor Progress Note - VS & Meds Vital Signs: Last Vital Signs Temp 36.8 C 08/11/20 07:38 Pulse 86 08/11/20 07:38 Resp 14 08/11/20 07:38 BP 145/76 H 08/11/20 07:38 Pulse Ox 99 08/11/20 07:38 Active Medications: Current Medications Calcium Carbonate/Glycine (Calcium Carbonate 500 Mg Tab.Chew) 1,000 mg PO Q2H PRN PRN Reason: Indigestion Lactated Ringer's (Ringers, Lactated) 1,000 mls @ 100 mls/hr IV ASDIRECTED JEAN Last Admin: 08/11/20 10:59 Dose: 100 mls/hr Documented by: Oxytocin/Lactated Ringer's (Pitocin In Lr 10 Units/1,000 Ml) 10 unit in 1,000 mls @ 12 mls/hr IV TITRATE JEAN; Protocol Last Admin: 08/11/20 10:59 Dose: 2 munits/min, 12 mls/hr Documented by: Oxytocin/Lactated Ringer's (Pitocin In Lr 10 Units/1,000 Ml) 10 unit in 1,000 mls @ 100 mls/hr IV .CONTINUOUS JEAN; Protocol Nalbuphine HCl (Nalbuphine 10 Mg/1 Ml Vial) 10 mg IVPUSH Q2H PRN PRN Reason: Pain Ondansetron HCl (Ondansetron 4 Mg/2 Ml Sdv) 4 mg IVPUSH Q4H PRN PRN Reason: Nausea/Vomiting Sodium Chloride (Sodium Chloride 0.9% 10 Ml Syringe) 10 ml FLUSH ASDIRECTED PRN PRN Reason: Keep Vein Open - Uterine Contractions Contraction Frequency (min): 3-5 Contraction Duration (sec): 45-60 Contraction Intensity: Moderate to Strong Uterine Resting Tone: Soft - Monitoring Monitor Mode: Doppler/Auscultation Heart Rate (FHR) Baseline: 145 Heart Rate (FHR) Variability: Moderate (6-25 bmp) Accelerations: Present, 15x15 Decelerations: Variable, Intermittent (<50% x 20 min) Strip Review: Category II - Vaginal Exam Dilation (cm): 3.5 Effacement (Percent): 80 Station: -3 Cervical Position: Anterior Sterile Vaginal Exam Performed By: Ender Cosby Vaginal Exam Comment: Artificial rupture of membranes with [place] with return of small amount of clear fluid. Mother and tolerated procedure without difficulty. - Labor Progress (Free Text) Labor Progress: Evtete Villa is a 29-year-old -0-0-1 female at 40 weeks 1 day who presents for elective induction of labor Patient making good progress on Pitocin after she had been started on Pitocin at 11 AM Cervical exam at this time was 3.5/80/-3/soft/anterior. Artificial rupture membranes performed with return of small amount of clear fluid. Mother and tolerated procedure without difficulty. Routine vitals Patient may have small amount of regular diet as tolerated. Patient may have epidural as desired. Anticipate vaginal delivery unless otherwise indicated. Ender Cosby MD 2:52 PM 08/11/2020
[2020-08-11] MEDS ORDERED: Bupivacaine/fentaNYL/NS 100 ML Bag EPIDUR PRN (15:28)
[2020-08-11] MEDS ORDERED: ePHEDrine 50 MG/ML SDV IVPUSH PRN (15:28)
[2020-08-11] MEDS ORDERED: diphenhydrAMINE 50 MG/ML SDV IVPUSH PRN (15:28)
[2020-08-11] MEDS: fentaNYL 100 MCG/2 ML SDV EPIDUR PRN ×2 (16:36→17:45)
--- NOTE | 2020-08-11 16:58 | PCM.PREANE ---
Preanesthetic Assessment - Procedure Proposed Procedure: Labor Epidural - Anesthesia/Transfusion/Family Hx Anesthesia History: Prior Anesthesia Without Reaction Family History of Anesthesia Reaction: No Transfusion History: No Prior Transfusion(s) - Review of Systems General: No Symptoms Pulmonary: No Symptoms Cardiovascular: No Symptoms Gastrointestinal: Other (Acid reflux) Other: Reports: None (BMI 41.8), Depression, Anxiety - Physical Assessment Vital Signs: Last Vital Signs Temp 36.8 C 08/11/20 07:38 Pulse 86 08/11/20 07:38 Resp 14 08/11/20 07:38 BP 145/76 H 08/11/20 07:38 Pulse Ox 99 08/11/20 07:38 Height: 1.68 m Weight: 117.39 kg ASA Class: 3 Mental Status: Alert & Oriented x3 Airway Class: Mallampati = 1 Dentition: Reports: Normal Dentition Thyro-Mental Finger Breadths: 3 Mouth Opening Finger Breadths: 3 ROM/Head Extension: Full Lungs: Clear to Auscultation, Normal Respiratory Effort - Lab Values: Laboratory Last Values WBC 12.97 K/mm3 (3.98-10.04) H 08/11/20 09:57 RBC 4.19 M/mm3 (3.98-5.22) 08/11/20 09:57 Hgb 12.0 gm/dl (11.2-15.7) 08/11/20 09:57 Hct 36.1 % (34.1-44.9) 08/11/20 09:57 MCV 86.2 fl (79.4-94.8) 08/11/20 09:57 MCH 28.6 pg (25.6-32.2) 08/11/20 09:57 MCHC 33.2 g/dl (32.2-35.5) 08/11/20 09:57 RDW Std Deviation 43.3 fL (36.4-46.3) 08/11/20 09:57 Plt Count 251 K/mm3 (182-369) 08/11/20 09:57 MPV 10.0 fl (9.4-12.3) 08/11/20 09:57 Neut % (Auto) 74.3 % (34.0-71.1) H 08/11/20 09:57 Lymph % (Auto) 15.0 % (19.3-51.7) L 08/11/20 09:57 [place] % (Auto) 9.6 % (4.7-12.5) 08/11/20 09:57 Eos % (Auto) 0.6 (0.7-5.8) L 08/11/20 09:57 Baso % (Auto) 0.2 % (0.1-1.2) 08/11/20 09:57 Neut # (Auto) 9.63 K/mm3 (1.56-6.13) H 08/11/20 09:57 Lymph # (Auto) 1.95 K/mm3 (1.18-3.74) 08/11/20 09:57 [place] # (Auto) 1.25 K/mm3 (0.24-0.36) H 08/11/20 09:57 Eos # (Auto) 0.08 K/mm3 (0.04-0.36) 08/11/20 09:57 Baso # (Auto) 0.02 K/mm3 (0.01-0.08) 08/11/20 09:57 Manual Slide Review Not Reportable 08/11/20 09:57 SARS-CoV-2 RNA (AUBREY) Negative (NEGATIVE) 08/11/20 07:40 - Allergies Allergies/Adverse Reactions: Allergies Allergy/AdvReac Type Severity Reaction Status Date / Time No Known Allergies Allergy Verified 08/11/20 09:53 - Acknowledgements Anesthesia Type Planned: Epidural Pt an Appropriate Candidate for the Planned Anesthesia: Yes Alternatives and Risks of Anesthesia Discussed w Pt/Guardian: Yes Pt/Guardian Understands and Agrees with Anesthesia Plan: Yes PreAnesthesia Questionnaire HEENT History: Reports: None Gastrointestinal History: Reports: GERD Other Gastrointestinal History: Some diarrhea intermittently over past 3 weeks. [employer] History: Reports: Musculoskeletal History: Reports: Other (See Below) Other Musculoskeletal History: Spondylolisthesis Psychiatric History: Reports: Anxiety, Depression Other Psychiatric History: takes lorazepam as needed Dermatologic History: Reports: Other (See Below) Other Dermatologic History: Preganancy rash; tiny, itchy bumps with reddenned skin on all parts of body - Past Surgical History HEENT Surgical History: Reports: Oral Surgery, Other (See Below) Other HEENT Surgeries/Procedures: [place] teeth pulled 2008 GI Surgical History: Reports: None Female Surgical History: Reports: None Musculoskeletal Surgical History: Reports: None Dermatological Surgical History: Reports: None - SUBSTANCE USE Tobacco Use Status *Q: Never Tobacco User Tobacco Use Within Last Twelve Months: No Second Hand Smoke Exposure: No Recreational Drug Use History: No - HOME MEDS Home Medications: Home Meds Aspirin 1 tab PO DAILY 08/11/20 [History] LORazepam [Ativan] 2 mg PO Q12HR PRN 08/11/20 [History] No122/Iron/Folic Acid [ Multi Tablet] 1 tab PO DAILY 08/11/20 [History] valACYclovir HCl [Valtrex] 1 tab PO DAILY 08/11/20 [History] - CURRENT (IN HOUSE) MEDS Current Meds: Current Medications Calcium Carbonate/Glycine (Calcium Carbonate 500 Mg Tab.Chew) 1,000 mg PO Q2H PRN PRN Reason: Indigestion Diphenhydramine HCl (Diphenhydramine 50 Mg/Ml Sdv) 25 mg IVPUSH Q6H PRN PRN Reason: pruritis Ephedrine Sulfate (Ephedrine 50 Mg/Ml Sdv) 5 mg IVPUSH ASDIRECTED PRN PRN Reason: Hypotension Fentanyl (Fentanyl 100 Mcg/2 Ml Sdv) 100 mcg EPIDUR Q3H PRN PRN Reason: Pain Last Admin: 08/11/20 16:36 Dose: 100 mcg Documented by: Fentanyl/Bupivacaine HCl (Bupivacaine/Fentanyl/Ns 100 Ml Bag) 100 ml EPIDUR ASDIRECTED PRN PRN Reason: Pain Last Admin: 08/11/20 16:37 Dose: 100 ml Documented by: Lactated Ringer's (Ringers, Lactated) 1,000 mls @ 100 mls/hr IV ASDIRECTED JEAN Last Admin: 08/11/20 16:37 Dose: 100 mls/hr Documented by: Oxytocin/Lactated Ringer's (Pitocin In Lr 10 Units/1,000 Ml) 10 unit in 1,000 mls @ 12 mls/hr IV TITRATE JEAN; Protocol Last Admin: 08/11/20 10:59 Dose: 2 munits/min, 12 mls/hr Documented by: Oxytocin/Lactated Ringer's (Pitocin In Lr 10 Units/1,000 Ml) 10 unit in 1,000 mls @ 100 mls/hr IV .CONTINUOUS JEAN; Protocol Nalbuphine HCl (Nalbuphine 10 Mg/1 Ml Vial) 10 mg IVPUSH Q2H PRN PRN Reason: Pain Ondansetron HCl (Ondansetron 4 Mg/2 Ml Sdv) 4 mg IVPUSH Q4H PRN PRN Reason: Nausea/Vomiting Sodium Chloride (Sodium Chloride 0.9% 10 Ml Syringe) 10 ml FLUSH ASDIRECTED PRN PRN Reason: Keep Vein Open
[2020-08-11] MEDS ORDERED: Bupivacaine 0.25% 10 ML SDV ONE (19:00)
--- NOTE | 2020-08-11 22:50 | PCM.DEL ---
L & D Note - General Info Date of Service: 08/11/20 Mother's Due Date: 08/10/20 - Delivery Note Labor: Augmented by ARM, Augmented by Oxytocin Cervical Ripening Method: Oxytocin Delivery Outcome: Livebirth Delivery Method: Spontaneous Vaginal Delivery-Single Presentation: Right Occiput Anterior (SARITHA) Nuchal Cord: Present (x1), Reduced (prior to delivery) Prep: Povidone-Iodine (Betadine Anesthesia Type: Epidural Amniotic Fluid Description: Clear Episiotomy Type: None Laceration: 2nd Degree (midline perineal laceration, repaired with 3-0 Vicryl) Suture type: Vicryl Suture size: 3-0 Placenta: Intact, Spontaneous Cord: 3 Vessels Estimated Blood Loss: 300 Resuscitation Needed: Yes [place]: Bulb Syringe, Stimulated, Warmed, [place] Used Provider: Slim Branch Score 1 min: 8 Score 5 min: 9 Second Stage Interventions: Reports: Pushing, Stirrups/Leg Supports Delivery Comments (Free Text/Narrative):: Stage I: Evette Villa was admitted for elective induction of labor. On admission her cervix was dilated to 2 cm. She was GBS negative. She was monitored for several hours after having an initial prolonged deceleration of approximately 2 minutes after she had been admitted. She had good monitoring during this time and was started on Pitocin for induction of labor. Attempt to place a transcervical Stone bulb catheter was made but after correct placement of the Stone bulb through the cervix the Stone bulb came out spontaneously and was felt to not be appropriate for ongoing with the induction of labor. She had artificial rupture of membranes with return of small amount of clear fluid. She was given an epidural for anesthesia. She continued to labor with Pitocin for augmentation and did have some variable decelerations. She was given IV fluid bolus and placed on her side and the variable decelerations resolved. She progressed to complete and pushing. Stage II: On 08/11/2020 she had a normal vaginal delivery of a live male infant at 22:06. Apgars of 8 & 9. Weight of 3850 g (8 lbs 7.8 oz). Length of 21.0 inches. There was a single nuchal cord that was reduced prior to delivery of the body. was delivered in SARITHA position. The cord was doubly clamped and cut by father the . Infant was placed on mother's abdomen. Stage III: She had a spontaneous delivery of an intact placenta in Ladi presentation. Three vessel cord. She was given pitocin and fundal massage. She had a second-degree midline perineal laceration that was repaired with 3-0 Vicryl. Mom and baby were stable to recovery. EBL of 300 mL. Ender Cosby MD 10:50 PM 08/11/2020 Induction Criteria - Barr Score Barr Score Dilation: 1-2 cm Barr Score Effacement: 60-70% Barr Score 's Station: -3 Barr Score Consistency: Soft Barr Score Cervix Position: Midposition Barr Score Total: 6 Barr Score Presenting Part: Reports: Cephalic - Induction Gestational Age >/= 39 wks: Yes Estimated Pelvis: Reports: Adequate Reassuring Monitoring Strip: Yes Absence of Tachy Systole: Yes - Augmentation Estimated Pelvis: Reports: Adequate Weight Estimated:: Reports: AGA Reassuring Monitoring Strip: Yes Absence of Tachy Systole: Yes - General Info Date of Service: 08/11/20 - Patient Data Vitals - Most Recent: Last Vital Signs Temp 36.8 C 08/11/20 07:38 Pulse 86 08/11/20 07:38 Resp 14 08/11/20 07:38 BP 145/76 H 08/11/20 07:38 Pulse Ox 99 08/11/20 07:38 Weight - Most Recent: 117.39 kg I&O - Last 24 Hours: Intake & Output 08/11/20 08/11/20 08/11/20 06:59 14:59 22:59 Intake Total 1999 Balance 1999 Lab Results Last 24 Hours: Laboratory Results - last 24 hr 08/11/20 08/11/20 08/11/20 Range/Units 07:40 09:57 09:57 WBC 12.97 H (3.98-10.04) K/mm3 RBC 4.19 (3.98-5.22) M/mm3 Hgb 12.0 (11.2-15.7) gm/dl Hct 36.1 (34.1-44.9) % MCV 86.2 (79.4-94.8) fl MCH 28.6 (25.6-32.2) pg MCHC 33.2 (32.2-35.5) g/dl RDW Std Deviation 43.3 (36.4-46.3) fL Plt Count 251 (182-369) K/mm3 MPV 10.0 (9.4-12.3) fl Neut % (Auto) 74.3 H (34.0-71.1) % Lymph % (Auto) 15.0 L (19.3-51.7) % Stephens % (Auto) 9.6 (4.7-12.5) % Eos % (Auto) 0.6 L (0.7-5.8) Baso % (Auto) 0.2 (0.1-1.2) % Neut # (Auto) 9.63 H (1.56-6.13) K/mm3 Lymph # (Auto) 1.95 (1.18-3.74) K/mm3 Stephens # (Auto) 1.25 H (0.24-0.36) K/mm3 Eos # (Auto) 0.08 (0.04-0.36) K/mm3 Baso # (Auto) 0.02 (0.01-0.08) K/mm3 Manual Slide Review Not Reportable RPR Non-reactive (NONREACTIVE) SARS-CoV-2 RNA (AUBREY) Negative (NEGATIVE) Med Orders - Current: Current Medications Calcium Carbonate/Glycine (Calcium Carbonate 500 Mg Tab.Chew) 1,000 mg PO Q2H PRN PRN Reason: Indigestion Last Admin: 08/11/20 18:34 Dose: 1,000 mg Documented by: Diphenhydramine HCl (Diphenhydramine 50 Mg/Ml Sdv) 25 mg IVPUSH Q6H PRN PRN Reason: pruritis Ephedrine Sulfate (Ephedrine 50 Mg/Ml Sdv) 5 mg IVPUSH ASDIRECTED PRN PRN Reason: Hypotension Fentanyl (Fentanyl 100 Mcg/2 Ml Sdv) 100 mcg EPIDUR Q3H PRN PRN Reason: Pain Last Admin: 08/11/20 17:45 Dose: 100 mcg Documented by: Fentanyl/Bupivacaine HCl (Bupivacaine/Fentanyl/Ns 100 Ml Bag) 100 ml EPIDUR ASDIRECTED PRN PRN Reason: Pain Last Admin: 08/11/20 16:37 Dose: 100 ml Documented by: Lactated Ringer's (Ringers, Lactated) 1,000 mls @ 100 mls/hr IV ASDIRECTED JEAN Last Admin: 08/11/20 17:46 Dose: 100 mls/hr Documented by: Oxytocin/Lactated Ringer's (Pitocin In Lr 10 Units/1,000 Ml) 10 unit in 1,000 mls @ 12 mls/hr IV TITRATE JEAN; Protocol Last Titration: 08/11/20 20:15 Dose: 16 munits/min, 96 mls/hr Documented by: Oxytocin/Lactated Ringer's (Pitocin In Lr 10 Units/1,000 Ml) 10 unit in 1,000 mls @ 100 mls/hr IV .CONTINUOUS JEAN; Protocol Nalbuphine HCl (Nalbuphine 10 Mg/1 Ml Vial) 10 mg IVPUSH Q2H PRN PRN Reason: Pain Ondansetron HCl (Ondansetron 4 Mg/2 Ml Sdv) 4 mg IVPUSH Q4H PRN PRN Reason: Nausea/Vomiting Sodium Chloride (Sodium Chloride 0.9% 10 Ml Syringe) 10 ml FLUSH ASDIRECTED PRN PRN Reason: Keep Vein Open - Exam Urinary Catheter Total Time: 0Days 0Hours - Problem List & Annotations (1) History of pre-eclampsia in prior , currently SNOMED Code(s): 999721467277671, 504101860858250 Code(s): O09.299 - SUPRVSN OF PREG W POOR REPRODCTV OR OBSTET HISTORY, UNSP TRI Status: Acute Current Visit: Yes (2) 40 weeks gestation of SNOMED Code(s): 86065042 Code(s): Z3A.40 - 40 WEEKS GESTATION OF Status: Acute Current Visit: No (3) Anxiety SNOMED Code(s): 94749703 Code(s): F41.9 - ANXIETY DISORDER, UNSPECIFIED Status: Acute Current V isit: No (4) Rh negative status during SNOMED Code(s): 599095862 Code(s): O26.899 - OTH RELATED CONDITIONS, UNSPECIFIED TRIMESTER; Z67.91 - UNSPECIFIED BLOOD TYPE, RH NEGATIVE Status: Acute Current Visit: No (5) Second degree perineal laceration during delivery SNOMED Code(s): 5284620 Code(s): O70.1 - SECOND DEGREE PERINEAL LACERATION DURING DELIVERY Status: Acute Current Visit: No (6) Vaginal delivery SNOMED Code(s): 140581337 Code(s): O80 - ENCOUNTER FOR FULL-TERM UNCOMPLICATED DELIVERY Status: Acute Current Visit: No - Problem List Review Problem List Initiated/Reviewed/Updated: Yes - My Orders Last 24 Hours: My Active Orders 08/11/20 09:38 Patient Status [ADT] Routine Activity as Tolerated [RC] PFP Communication Order [RC] ASDIRECTED Heart Tones [RC] ASDIRECTED Notify Provider [RC] PFP Notify Provider [RC] PRN Peripheral IV Care [RC] . DIRECTED Urinary Catheter Assessment [RC] ASDIRECTED Vital Signs [RC] PER UNIT ROUTINE Calcium Carbonate [Tums] 1,000 mg PO Q2H PRN Nalbuphine [Nubain] 10 mg IVPUSH Q2H PRN Ondansetron [Zofran] 4 mg IVPUSH Q4H PRN Sodium Chloride 0.9% [Saline Flush] 10 ml FLUSH ASDIRECTED PRN Electronic Heart Tones Ext w TOCO [WOMSER] Routine Electronic Heart Tones Internal [WOMSER] Per Unit Routine Peripheral IV Insertion Adult [OM.PC] Routine Resuscitation Status Routine 08/11/20 09:45 Lactated Ringers [Ringers, Lactated] 1,000 ml IV ASDIRECTED Oxytocin/Lactated Ringers [Pitocin in LR 10 Units/1,000 ML] 10 unit in 1,000 ml IV .CONTINUOUS Oxytocin/Lactated Ringers [Pitocin in LR 10 Units/1,000 ML] 10 unit in 1,000 ml IV TITRATE 08/11/20 09:57 HEP C VIRUS AB [REF] Routine 08/11/20 Lunch Regular Diet [DIET] 08/11/20 22:38 Patient Status Manage Transfer [TRANSFER] Routine - Plan Plan:: Evette Villa is a 29-year-old G2 now P2-0-0-2 female status post , PPD #0, complicated by Rh- status, history of preeclampsia in prior , anxiety and depression and excessive weight gain during this Admit to inpatient following normal spontaneous vaginal delivery Continue Pitocin per unit protocol following delivery of placenta and lactated Ringer's until tolerating regular diet Regular diet Vitals per unit routine Ibuprofen and Tylenol for pain control Assist with breast-feeding as needed Continue to monitor lochia Follow-up on blood type and give RhoGam if infant has Rh+ blood type Anticipate discharge home on day #2 due to late timing of delivery Ender Cosby MD 10:50 PM 08/11/2020
[2020-08-11] MEDS ORDERED: Hydrocortisone Acetate 25 MG Supp RECTAL PRN (23:46)
[2020-08-11] MEDS ORDERED: Acetaminophen 325 MG Tab PO PRN (23:46)
[2020-08-11] MEDS ORDERED: Magnesium Hydroxide 400 MG/5 ML Susp 30 ML Cup PO PRN (23:46)
[2020-08-11] MEDS ORDERED: Benzocaine/Menthol 20%-0.5% Spray 56 GM Canister TOP PRN (23:46)
[2020-08-12] MEDS: Ibuprofen 600 MG Tab PO PRN ×3 (00:39→15:33)
[2020-08-12] MEDS: Witch Hazel Medicated Pads 40/Jar TOP PRN ×2 (00:39→13:02)
[2020-08-12] MEDS: Docusate Sodium 100 MG Cap PO PRN ×2 (00:40→12:58)
--- NOTE | 2020-08-12 07:01 | PCM48HPAN ---
Post Anesthesia Note - EVALUATION WITHIN 48HRS OF ANESTHETIC Vital Signs in Normal Range: Yes Patient Participated in Evaluation: Yes Respiratory Function Stable: Yes Airway Patent: Yes Cardiovascular Function Stable: Yes Hydration Status Stable: Yes Pain Control Satisfactory: Yes Nausea and Vomiting Control Satisfactory: Yes Mental Status Recovered: Yes Vital Signs: Last Vital Signs Temp 98.2 F 08/12/20 04:06 Pulse 71 08/12/20 04:06 Resp 16 08/12/20 04:06 BP 113/60 08/12/20 04:06 Pulse Ox 98 08/12/20 04:06 - COMMENTS/OBSERVATIONS Free Text/Narrative:: Patient nursing baby when visiting patient. Patient complaining of mild back pain but relieved with PRN tylenol and motrin. Patient denying signs and symptoms of PDPH. Patient stated that her epidural "worked great" and that she was happy with her experience.
--- NOTE | 2020-08-12 07:51 | PCM.SN.2 ---
- Free Text/Narrative Note: Post Progress Note PPD #1 Subjective: Doing well overall. Ambulating without difficulty. Reports that she did have some mild heaviness in her legs immediately after her epidural was removed but this is improved overnight. Lochia minimal. Voiding without difficulty. Tolerating regular diet without nausea or vomiting. Pain controlled with oral medications. Breast-feeding with minimal difficulty. Objective: Vitals: Vital Signs - 24 hr 08/12/20 04:06 Temperature 36.8 C Pulse, 71 Peripheral Respiratory 16 Rate Blood Pressure 113/60 O2 Sat by Pulse 98 Oximetry Physical Exam General: Alert and oriented, no acute distress Lungs: Clear to auscultation bilaterally Heart: Regular rate and rhythm Abdomen: Soft, minimal appropriate tenderness, non-distended, fundus midline, nontender, and at the umbilicus Extremities: Trace edema in bilateral lower extremities to mid shins, no calf tenderness bilaterally Laboratory Results - last 24 hr 08/11/20 08/11/20 08/11/20 Range/Units 07:40 09:57 09:57 WBC 12.97 H (3.98-10.04) K/mm3 RBC 4.19 (3.98-5.22) M/mm3 Hgb 12.0 (11.2-15.7) gm/dl Hct 36.1 (34.1-44.9) % MCV 86.2 (79.4-94.8) fl MCH 28.6 (25.6-32.2) pg MCHC 33.2 (32.2-35.5) g/dl RDW Std Deviation 43.3 (36.4-46.3) fL Plt Count 251 (182-369) K/mm3 MPV 10.0 (9.4-12.3) fl Neut % (Auto) 74.3 H (34.0-71.1) % Lymph % (Auto) 15.0 L (19.3-51.7) % Tucker % (Auto) 9.6 (4.7-12.5) % Eos % (Auto) 0.6 L (0.7-5.8) Baso % (Auto) 0.2 (0.1-1.2) % Neut # (Auto) 9.63 H (1.56-6.13) K/mm3 Lymph # (Auto) 1.95 (1.18-3.74) K/mm3 Tucker # (Auto) 1.25 H (0.24-0.36) K/mm3 Eos # (Auto) 0.08 (0.04-0.36) K/mm3 Baso # (Auto) 0.02 (0.01-0.08) K/mm3 Manual Slide Review Not Reportable RPR Non-reactive (NONREACTIVE) SARS-CoV-2 RNA (AUBREY) Negative (NEGATIVE) Blood Type Gel Antibody Screen Screen RhIG Candidate? Rhogam Indicated 08/12/20 Range/Units 05:30 WBC (3.98-10.04) K/mm3 RBC (3.98-5.22) M/mm3 Hgb (11.2-15.7) gm/dl Hct (34.1-44.9) % MCV (79.4-94.8) fl MCH (25.6-32.2) pg MCHC (32.2-35.5) g/dl RDW Std Deviation (36.4-46.3) fL Plt Count (182-369) K/mm3 MPV (9.4-12.3) fl Neut % (Auto) (34.0-71.1) % Lymph % (Auto) (19.3-51.7) % [place] % (Auto) (4.7-12.5) % Eos % (Auto) (0.7-5.8) Baso % (Auto) (0.1-1.2) % Neut # (Auto) (1.56-6.13) K/mm3 Lymph # (Auto) (1.18-3.74) K/mm3 Tucker # (Auto) (0.24-0.36) K/mm3 Eos # (Auto) (0.04-0.36) K/mm3 Baso # (Auto) (0.01-0.08) K/mm3 Manual Slide Review RPR (NONREACTIVE) SARS-CoV-2 RNA (AUBREY) (NEGATIVE) Blood Type A NEGATIVE Gel Antibody Screen Positive Screen 1 ros/5 flds - neg RhIG Candidate? Yes Rhogam Indicated Yes, baby rh pos H ASSESSMENT: 29-year-old female -0-0-2 s/p normal vaginal delivery PPD #1, complicated by Rh- status, anxiety and depression, and history of preeclampsia in her first PLAN: Doing well Breast-feeding with minimal difficulty. Assist as needed Lochia minimal. Continue to monitor for appropriate lochia. Continue routine care Mother with A- blood type and with O+ blood type. Mother should be given RhoGam prior to discharge. Anticipate discharge home tomorrow due to late timing of delivery Ender Cosby MD 7:50 AM 08/12/2020
[2020-08-12] MEDS ORDERED: Aluminum Hydroxide/Magnesium Hydroxide/Simethicone Susp 30 ML Cup PO PRN (08:08)
[2020-08-12] MEDS ORDERED: Prenatal Multivitamin with Calcium/Folic Acid/Iron Tab PO SCH (09:00)
[2020-08-13] MEDS: Ibuprofen 600 MG Tab PO PRN ×2 (00:39→06:38)
[2020-08-13 04:12] VITALS: BP 133/72; PULSE 59
--- NOTE | 2020-08-13 08:16 | PCM.DCSUM1 ---
Discharge Summary - Discharge Data Discharge Date: 08/13/20 Discharge Disposition: Home, Self-Care 01 Condition: Good - Referral to Home Health Primary Care Physician: Ender Cosby MD - Patient Summary/Data Hospital Course: Stage I: Evette Villa was admitted for elective induction of labor. On admission her cervix was dilated to 2 cm. She was GBS negative. She was monitored for several hours after having an initial prolonged deceleration of approximately 2 minutes after she had been admitted. She had good monitoring during this time and was started on Pitocin for induction of labor. Attempt to place a transcervical Stone bulb catheter was made but after correct placement of the Stone bulb through the cervix the Stone bulb came out spontaneously and was felt to not be appropriate for ongoing with the induction of labor. She had artificial rupture of membranes with return of small amount of clear fluid. She was given an epidural for anesthesia. She continued to labor with Pitocin for augmentation and did have some variable decelerations. She was given IV fluid bolus and placed on her side and the variable decelerations resolved. She progressed to complete and pushing. Stage II: On 08/11/2020 she had a normal vaginal delivery of a live male at 22:06. Apgars of 8 & 9. Weight of 3850 g (8 lbs 7.8 oz). Length of 21.0 inches. There was a single nuchal cord that was reduced prior to delivery of the body. was delivered in SARITHA position. The cord was doubly clamped and cut by father the infant. Infant was placed on mother's abdomen. Stage III: She had a spontaneous delivery of an intact placenta in Ladi presentation. Three vessel cord. She was given pitocin and fundal massage. She had a second-degree midline perineal laceration that was repaired with 3-0 Vicryl. Mom and baby were stable to recovery. EBL of 300 mL. - Discharge Plan Home Medications: Home Meds Aspirin 1 tab PO DAILY 08/11/20 [History] LORazepam [Ativan] 2 mg PO Q12HR PRN 08/11/20 [History] No122/Iron/Folic Acid [ Multi Tablet] 1 tab PO DAILY 08/11/20 [History] valACYclovir HCl [Valtrex] 1 tab PO DAILY 08/11/20 [History] - Discharge Summary/Plan Comment DC Time >30 min.: No - General Info Date of Service: 08/13/20 Functional Status: Reports: Pain Controlled - Review of Systems General: Reports: No Symptoms HEENT: Reports: No Symptoms Pulmonary: Reports: No Symptoms Cardiovascular: Reports: No Symptoms Gastrointestinal: Reports: No Symptoms Genitourinary: Reports: No Symptoms Musculoskeletal: Reports: No Symptoms Skin: Reports: No Symptoms Neurological: Reports: No Symptoms Psychiatric: Reports: No Symptoms - Patient Data Vitals - Most Recent: Last Vital Signs Temp 36.8 C 08/13/20 03:58 Pulse 59 L 08/13/20 03:58 Resp 17 08/13/20 03:58 BP 133/72 08/13/20 03:58 Pulse Ox 96 08/13/20 03:58 Weight - Most Recent: 117.39 kg I&O - Last 24 hours: Intake & Output 08/12/20 08/13/20 08/13/20 22:59 06:59 14:59 Intake Total 180 Balance 180 Med Orders - Current: Current Medications Acetaminophen (Acetaminophen 325 Mg Tab) 650 mg PO Q6H PRN PRN Reason: mild pain or fever Al Hydroxide/Mg Hydroxide (Aluminum Hydroxide/Magnesium Hydroxide/Simethicone Susp 30 Ml Cup) 30 ml PO Q4H PRN PRN Reason: Heartburn Last Admin: 08/12/20 08:54 Dose: 30 ml Documented by: Benzocaine/Menthol (Benzocaine/Menthol 20%-0.5% [place] 56 Gm Canister) 0 gm TOP ASDIRECTED PRN PRN Reason: Perineal Comfort Measure Last Admin: 08/12/20 00:39 Dose: 1 canister Documented by: Docusate Sodium (Docusate Sodium 100 Mg Cap) 100 mg PO BID PRN PRN Reason: Constipation Last Admin: 08/12/20 12:58 Dose: 100 mg Documented by: Hydrocortisone Acetate (Hydrocortisone Acetate 25 Mg Supp) 25 mg RECTAL BID PRN PRN Reason: Hemorrhoid pain Oxytocin/Lactated Ringer's (Pitocin In Lr 10 Units/1,000 Ml) 10 unit in 1,000 mls @ 100 mls/hr IV TITRATE JEAN; Protocol Ibuprofen (Ibuprofen 600 Mg Tab) 600 mg PO Q6H PRN PRN Reason: Mild pain or fever Last Admin: 08/13/20 06:38 Dose: 600 mg Documented by: Magnesium Hydroxide (Magnesium Hydroxide 400 Mg/5 Ml Susp 30 Ml Cup) 30 ml PO BEDTIME PRN PRN Reason: Constipation Prenat Multivit/[place]/Iron/Folic Ac ( Multivitamin With Calcium/Folic Acid/Iron Tab) 1 each PO DAILY JEAN Last Admin: 08/12/20 10:13 Dose: Not Given Documented by: Leixe Villanueva (Lexie Villanueva Medicated Pads 40/Jar) 1 pad TOP ASDIRECTED PRN PRN Reason: Perineal Comfort Measure Last Admin: 08/12/20 13:02 Dose: 1 can Documented by: Discontinued Medications Bupivacaine HCl (Bupivacaine 0.25% 10 Ml Sdv) 20 ml .ROUTE .STK-MED ONE Stop: 08/11/20 19:01 Calcium Carbonate/Glycine (Calcium Carbonate 500 Mg Tab.Chew) 1,000 mg PO Q2H PRN PRN Reason: Indigestion Last Admin: 08/11/20 18:34 Dose: 1,000 mg Documented by: Diphenhydramine HCl (Diphenhydramine 50 Mg/Ml Sdv) 25 mg IVPUSH Q6H PRN PRN Reason: pruritis Ephedrine Sulfate (Ephedrine 50 Mg/Ml Sdv) 5 mg IVPUSH ASDIRECTED PRN PRN Reason: Hypotension Fentanyl (Fentanyl 100 Mcg/2 Ml Sdv) 100 mcg EPIDUR Q3H PRN PRN Reason: Pain Last Admin: 08/11/20 17:45 Dose: 100 mcg Documented by: Fentanyl/Bupivacaine HCl (Bupivacaine/Fentanyl/Ns 100 Ml Bag) 100 ml EPIDUR ASDIRECTED PRN PRN Reason: Pain Last Admin: 08/11/20 16:37 Dose: 100 ml Documented by: Lactated Ringer's (Ringers, Lactated) 1,000 mls @ 100 mls/hr IV ASDIRECTED JEAN Last Admin: 08/11/20 17:46 Dose: 100 mls/hr Documented by: Oxytocin/Lactated Ringer's (Pitocin In Lr 10 Units/1,000 Ml) 10 unit in 1,000 mls @ 12 mls/hr IV TITRATE JEAN; Protocol Last Titration: 08/11/20 20:15 Dose: 16 munits/min, 96 mls/hr Documented by: Oxytocin/Lactated Ringer's (Pitocin In Lr 10 Units/1,000 Ml) 10 unit in 1,000 mls @ 100 mls/hr IV .CONTINUOUS JEAN; Protocol Nalbuphine HCl (Nalbuphine 10 Mg/1 Ml Vial) 10 mg IVPUSH Q2H PRN PRN Reason: Pain Ondansetron HCl (Ondansetron 4 Mg/2 Ml Sdv) 4 mg IVPUSH Q4H PRN PRN Reason: Nausea/Vomiting Sodium Chloride (Sodium Chloride 0.9% 10 Ml Syringe) 10 ml FLUSH ASDIRECTED PRN PRN Reason: Keep Vein Open - Exam General: Reports: Alert, Oriented HEENT: Reports: Pupils Equal, Pupils Reactive, EOMI, Mucous Membr. Moist/[place] Neck: Reports: Supple Lungs: Reports: Clear to Auscultation, Normal Respiratory Effort Cardiovascular: Reports: Regular Rate, Regular Rhythm GI/Abdominal Exam: Normal Bowel Sounds, Soft, Non-Tender, No Organomegaly, No Distention, No Abnormal Bruit, No Mass, Pelvis Stable Rectal (Female) Exam: Normal Exam, Normal Rectal Tone Back Exam: Reports: Normal Inspection, Full Range of Motion Extremities: Normal Inspection, Normal Range of Motion, Non-Tender, No Pedal Edema, Normal Capillary Refill Skin: Reports: Warm, Dry, Intact Wound/Incisions: Reports: Healing Well Neurological: Reports: No New Focal Deficit Psy/Mental Status: Reports: Alert, Normal Affect, Normal Mood
== END 2020-08-13 11:25 | disposition home or self-care (01) | DRG 807 ==
LOC: JD.OB 07:08 → OBSVTOIN 22:06 → JD.OB 22:07
PROVIDERS: ADMIT Obstetrics & Gynecology; ATTEND Obstetrics & Gynecology
PROC: 10E0XZZ Delivery of Products of Conception, External Approach (ICD-10-PCS; principal; 2020-08-11)
PROC: 0KQM0ZZ Repair Perineum Muscle, Open Approach (ICD-10-PCS; 2020-08-11)
PROC: 10907ZC Drainage of Amniotic Fluid, Therapeutic from Products of Conception, Via Natural or Artificial Opening (ICD-10-PCS; 2020-08-11)
PROC: 3E0R3BZ Introduction of Anesthetic Agent into Spinal Canal, Percutaneous Approach (ICD-10-PCS; 2020-08-11)
PROC: 00HU33Z Insertion of Infusion Device into Spinal Canal, Percutaneous Approach (ICD-10-PCS; 2020-08-11)
PROC: 3E0334Z Introduction of Serum, Toxoid and Vaccine into Peripheral Vein, Percutaneous Approach (ICD-10-PCS; 2020-08-12)
DX: O99.62 Diseases of the digestive system complicating childbirth (principal); Z37.0 Single live birth; K21.9 Gastro-esophageal reflux disease without esophagitis; O99.344 Other mental disorders complicating childbirth; F41.9 Anxiety disorder, unspecified; F32.9 Major depressive disorder, single episode, unspecified; O76 Abnormality in fetal heart rate and rhythm complicating labor and delivery; O69.81X0 Labor and delivery complicated by cord around neck, without compression, not applicable or unspecified; O70.1 Second degree perineal laceration during delivery; Z20.822 Contact with and (suspected) exposure to COVID-19; O26.893 Other specified pregnancy related conditions, third trimester; Z67.11 Type A blood, Rh negative; Z79.82 Long term (current) use of aspirin; Z3A.40 40 weeks gestation of pregnancy
CPT/HCPCS: 01967; 36415; 51702; 59025; 59409; 85025; 85461; 86592; 86803; 86850; 86870; 86900; 86901; A9270-GY; J2590; J2790; J3010; J3490; J7120; U0002